=== PATIENT | male | born 1945 | race Caucasian/White ===

== ENCOUNTER 2016-05-10 13:30 | Inpatient (IN) | payer OTHER ==
[~2016-05-10] VITALS: Ht 188 cm; Wt 109.0 kg
[~2016-05-10 13:30] MED LIST: ACIDOPHILUS PROB1 MG PO; ALBUTEROL17 GM IH; ALDACTONE25 MG PO; ALLOPURINOL100 MG PO; ALTACE1.25 MG PO; ALTACE10 MG PO; AMBIEN5 MG PO; ANUCORT-HC25 MG PR; APRESOLINE10 MG PO; ARTIFICIAL TEAR15 M1 BOTH EYES; ATORVASTATIN CA10 MG PO; Aldactone PO; BACTRIM,SEPT1 TABLET PO; BISACODYL10 MG PR; BUMETANIDE0.5 MG PO; BUMETANIDE1 MG PO; BUMETANIDE2 MG PO; BUMEX1 MG PO; BUMEX2 MG PO; CALCITRIOL0.25 MC1 PO; CALCITRIOL0.25 MCG PO; CALCIUM; CALCIUM 600 +1 EAC1 PO; CALCIUM 600 +1 EAC4 PO; CALCIUM ACETAT667 M1 PO; CALCIUM PO; CALCIUM500 M4 PO; COLACE100 MG PO; COMPLETE SENIO1 EACH PO; CONSTULOSE10 GM/15 M PO; CORDARONE200 MG PO; COREG; COREG12.5 M1 PO; COREG25 M1 PO; COREG25 MG PO; COREG6.25 M1 PO; COUMADIN,JANTO2.5 MG PO; COUMADIN,JANTOVE5 MG PO; COUMADIN5 MG PO; Coreg PO; Coumadin,Jantoven PO; DOXYCYCLINE HY100 MG PO; DRISDOL50000 UNIT PO; ERGOCALCIF50000 UNI1 PO; FEOSOL325 MG PO; FERROUS SULFAT325 MG PO; FLONASE16 G1 BOTH NARES; FLUNISOLIDE25 ML BOTH NARES; FOLIC ACID1 MG PO; FUROSEMIDE40 MG PO; GLEEVEC400 MG PO; GLIPIZIDE; GLIPIZIDE10 M1 PO; GLIPIZIDE5 MG PO; GLUCOTROL XL5 MG PO; GLUCOTROL5 MG PO; HEMORRHOID OINT60 G1 PR; HYDROCHLOROTHIA25 MG PO; INR ON; K-DUR10 ME2 PO; K-DUR20 MEQ; K-DUR20 MEQ PO; K-Dur PO; K-TAB10 MEQ PO; KLOR-CON M2020 MEQ PO; KLOR-CON20 MEQ PO; LANOXIN,DIGI0.125 MG PO; LANTUS; LANTUS 10100 UNITS/ SC; LANTUS 3 M100 UNITS/ SC; LANTUS 3 M100 UNITS1 SC; LANTUS100 UNIT/2 SQ; LASIX20 MG PO; LASIX40 MG; LASIX40 MG PO; LEVOFLOXACIN750 MG PO; LEVOTHROID,S0.112 MG PO; LEVOTHROID,S0.125 MG PO; LEVOTHROID,SYN0.2 MG PO; LIPITOR20 MG PO; LISINOPRIL; LISINOPRIL5 MG PO; LOPERAMIDE2 MG PO; LORAZEPAM0.5 MG PO; Lasix PO; Levothroid,Synthroid PO; MACROBID100 MG PO; MAGOX 400400 MG PO; METAMUCIL FIBE3.4 GM PO; METOPROLOL PO; METOPROLOL TART25 MG PO; MULTIVITAMIN1 EAC2 PO; NEPHRO-VITE,1 TABLET PO; NOVOLOG PE100 UNITS/ SC; ONDANSETRON HCL4 M2 PO; ONDANSETRON HCL4 MG PO; OYSTER SHELL 51 EACH PO; OYSTER SHELL C1 EAC7 PO; OYSTER SHELL PO; PANTOPRAZOLE SO40 MG PO; PLAVIX75 MG PO; POTASSIUM CHLO10 MEQ PO; POTASSIUM CHLO20 ME1 PO; POTASSIUM CHLOR8 ME3 PO; PRINIVIL40 MG PO; PROAIR HFA8.5 GM IH; PROBIOTIC1 EAC1 PO; PROTONIX40 MG PO; Protonix PO; ROCALTROL0.25 MCG PO; Rocaltrol PO; SALINE NASAL SP45 ML BOTH NARES; SIMVASTATIN20 MG PO; SPECTRAVITE SE1 EACH PO; SPIRIVA1 INHALATI IH; SPIRONOLACTONE25 MG PO; SYNTHROID112 MCG PO; TASIGNA200 MG PO; TOPROL XL25 MG PO; TRAZODONE HCL50 MG PO; TUMS500 MG PO; TYLENOL EXTRA500 MG PO; TYLENOL PM PO; Tums,OsCal PO; VANCOMYCIN1.25 GM/25 IV; VITAMIN D250000 UNIT PO; WARFARIN SODIUM5 MG; WARFARIN SODIUM5 MG PO; ZESTRIL,PRINIVI10 M1 PO; ZESTRIL,PRINIVI40 M1; ZESTRIL,PRINIVI40 MG PO; ZOCOR20 MG PO; Zocor PO; Zofran PO; [UNRECOGNIZED DRUG - OTHER]; [UNRECOGNIZED DRUG - OTHER] PR; [UNRECOGNIZED DRUG - SUPPLY] MC
[2016-05-10 14:54] LABS: MCHC 32.3 G/DL (30.0-36.0); MCV 89.9 FL (86-99); MEAN PLAT.VOLUME 10.5 uM^3 (9.0-12.4); PLATELET COUNT 207 K/uL (156-360); RBC DIS.WIDTH-CV 21.1 % (11.8-14.6); RBC DIS.WIDTH-SD 66.8 % (39-53); RED BLOOD COUNT 4.34 M/uL (4.00-5.50); WHITE BLOOD COUNT 11.2 K/uL (4.1-10.2)
[2016-05-10 15:05] LABS: CHLORIDE 95 mEq/L (99-109); POTASSIUM 3.3 mEq/L (3.7-5.4); SODIUM 141 mEq/L (136-147)
[2016-05-10 15:07] LABS: GLUCOSE 176 mg/dL (70-99)
[2016-05-10 15:09] LABS: ANION GAP 15 MEQ/L (2-14)
[2016-05-10 15:11] LABS: GFR ESTIMATE (CALCULATED) 17 mL/min/
[2016-05-10 15:12] LABS: UREA NITROGEN (BUN) 60 mg/dL (9-23)
[2016-05-10 16:12] LABS: TROP-I INTERPRETATION NEGATIVE; TROPONIN-I 0.09 ng/mL (0.0-0.30)
[2016-05-10] MEDS ORDERED: ENULOSE10 GM/15 M PO (18:11)
[2016-05-10] MEDS ORDERED: NEPHROCAPS SOFTG1 MG PO (18:13)
[2016-05-10] MEDS ORDERED: NOVOLOG 10100 UNITS/ SC (18:13)
[2016-05-10] MEDS ORDERED: LEVEMIR100 UNIT/2 SC ×2 (18:14)
[2016-05-10] MEDS ORDERED: RAMIPRIL1.25 MG PO (18:15)
[2016-05-10] MEDS ORDERED: FOSRENOL750 MG PO (18:15)
[2016-05-10] MEDS ORDERED: BUMETANIDE2 MG PO (18:15)
[2016-05-10 21:17] LABS: INTER. NORMALIZED RATIO 1.7; PROTHROMBIN TIME 17.6 (9.2-11.2); PTT 32.3 (25-32)
[2016-05-10 22:01] LABS: BASE EXCESS 9.6 mEq/L (-3 to +3); BICARBONATE 31.4 mEq/L (22-26); CARBOXY HGB 2.4 % (0-5); COMMENTS - BLOOD GASES C+; DEVICE NC; METHEMOGLOBIN 1.1 % (0-1.5); O2 FLOW 3 L/MIN; PCO2 32 mm Hg (35-45); PO2 81 mm Hg (80-100); SITE RB
[2016-05-10 22:02] LABS: TOTAL RESP RATE 32 resp/min
[2016-05-10 22:36] LABS: POINT-OF-CARE METER ID UU13113702
[2016-05-10 23:10] VITALS: BP 101/62
[2016-05-10 23:20] VITALS: BP 101/62
[2016-05-10 23:28] LABS: POINT-OF-CARE METER ID UU14149397
[2016-05-11 04:26] VITALS: BP 109/64
[2016-05-11 05:48] LABS: HEMATOCRIT 37.5 % (38.0-50.0); MCH 28.2 PG (29.0-34.0); MCHC 31.5 G/DL (30.0-36.0); MCV 89.5 FL (86-99); MEAN PLAT.VOLUME 10.3 uM^3 (9.0-12.4); PLATELET COUNT 201 K/uL (156-360); RBC DIS.WIDTH-CV 20.7 % (11.8-14.6); RBC DIS.WIDTH-SD 67.5 % (39-53); RED BLOOD COUNT 4.19 M/uL (4.00-5.50); WHITE BLOOD COUNT 8.8 K/uL (4.1-10.2)
[2016-05-11 06:14] LABS: ANION GAP 14 MEQ/L (2-14); CHLORIDE 96 MEQ/L (99-109); GFR ESTIMATE (CALCULATED) 15 mL/min/; POTASSIUM 3.4 MEQ/L (3.7-5.4); SAMPLE HEMOLYSIS CHECK 0; SAMPLE ICTERIC CHECK 0; SAMPLE LIPEMIA CHECK 0; SODIUM 141 MEQ/L (136-147); UREA NITROGEN (BUN) 66 mg/dL (9-23)
[2016-05-11 06:30] LABS: GLUCOSE 108 mg/dL (70-99)
[2016-05-11 06:43] LABS: EOSINOPHIL (%) 1.7 % (0-5); EOSINOPHIL COUNT 0.2 K/uL (0-0.3); IMMATURE GRANULOCYTE (%) 0.2 % (0.0-0.7); LYMPHOCYTE COUNT 1.5 K/uL (1.0-2.8); MONOCYTE (%) 13.5 % (3-12); MONOCYTE COUNT 1.2 K/uL (0-0.8); NEUTROPHIL (%) 67.5 % (45-76)
[2016-05-11 07:37] VITALS: BP 109/59
[2016-05-11 11:39] VITALS: BP 109/65
[2016-05-11 11:52] LABS: POINT-OF-CARE METER ID UU14149397
[2016-05-11 14:18] LABS: POINT-OF-CARE METER ID UU13113681
[2016-05-11 16:26] LABS: INTER. NORMALIZED RATIO 1.7; PROTHROMBIN TIME 17.5 (9.2-11.2)
[2016-05-11 17:04] VITALS: BP 113/66
[2016-05-11 17:10] LABS: POINT-OF-CARE METER ID UU14149397
[2016-05-11 19:19] VITALS: BP 103/60
[2016-05-11 22:03] LABS: POINT-OF-CARE METER ID UU14149397
[2016-05-11 23:29] VITALS: BP 113/69
[2016-05-12 06:08] LABS: HEMATOCRIT 38.6 % (38.0-50.0); MCH 29.1 PG (29.0-34.0); MCHC 31.9 G/DL (30.0-36.0); MCV 91.3 FL (86-99); MEAN PLAT.VOLUME 11.1 uM^3 (9.0-12.4); PLATELET COUNT 216 K/uL (156-360); RBC DIS.WIDTH-CV 20.9 % (11.8-14.6); RBC DIS.WIDTH-SD 70.2 % (39-53); RED BLOOD COUNT 4.23 M/uL (4.00-5.50); WHITE BLOOD COUNT 10.1 K/uL (4.1-10.2)
[2016-05-12 06:20] LABS: EOSINOPHIL (%) 1.2 % (0-5); EOSINOPHIL COUNT 0.1 K/uL (0-0.3); IMMATURE GRANULOCYTE (%) 0.3 % (0.0-0.7); LYMPHOCYTE COUNT 1.3 K/uL (1.0-2.8); MONOCYTE (%) 13.5 % (3-12); MONOCYTE COUNT 1.4 K/uL (0-0.8); NEUTROPHIL (%) 71.6 % (45-76); NEUTROPHIL COUNT 7.2 K/uL (1.8-6.4)
[2016-05-12 06:24] LABS: INTER. NORMALIZED RATIO 1.7; PROTHROMBIN TIME 17.7 (9.2-11.2)
[2016-05-12 06:47] LABS: ANION GAP 13 MEQ/L (2-14); CHLORIDE 99 MEQ/L (99-109); GLUCOSE 152 mg/dL (70-99); POTASSIUM 3.8 MEQ/L (3.7-5.4); SAMPLE HEMOLYSIS CHECK 0; SAMPLE ICTERIC CHECK 0; SAMPLE LIPEMIA CHECK 0; SODIUM 140 MEQ/L (136-147); UREA NITROGEN (BUN) 48 mg/dL (9-23)
[2016-05-12 06:51] LABS: GFR ESTIMATE (CALCULATED) 20 mL/min/; VANCOMYCIN, TROUGH 5.8 MCG/ML (10-20)
[2016-05-12 06:53] LABS: POINT-OF-CARE METER ID UU14149397
[2016-05-12 08:07] VITALS: BP 102/57
[2016-05-12 11:51] VITALS: BP 103/55
[2016-05-12 12:07] LABS: POINT-OF-CARE METER ID UU14149397
[2016-05-12 15:36] VITALS: BP 106/56
[2016-05-12 17:06] LABS: POINT-OF-CARE METER ID UU14149397
[2016-05-12 19:41] VITALS: BP 95/56
[2016-05-12 22:13] LABS: POINT-OF-CARE METER ID UU14149397
[2016-05-12 23:43] VITALS: BP 103/56
[2016-05-13 03:50] VITALS: BP 100/61
[2016-05-13 04:46] LABS: HEMATOCRIT 37.3 % (38.0-50.0); MCH 29.1 PG (29.0-34.0); MCHC 32.2 G/DL (30.0-36.0); MCV 90.3 FL (86-99); MEAN PLAT.VOLUME 10.9 uM^3 (9.0-12.4); PLATELET COUNT 216 K/uL (156-360); RBC DIS.WIDTH-CV 20.4 % (11.8-14.6); RBC DIS.WIDTH-SD 65.7 % (39-53); RED BLOOD COUNT 4.13 M/uL (4.00-5.50); WHITE BLOOD COUNT 9.1 K/uL (4.1-10.2)
[2016-05-13 04:48] LABS: EOSINOPHIL (%) 2.3 % (0-5); EOSINOPHIL COUNT 0.2 K/uL (0-0.3); IMMATURE GRANULOCYTE (%) 0.2 % (0.0-0.7); IMMATURE GRANULOCYTE COUNT 0.2 K/uL; LYMPHOCYTE COUNT 1.5 K/uL (1.0-2.8); MONOCYTE (%) 13.1 % (3-12); MONOCYTE COUNT 1.2 K/uL (0-0.8); NEUTROPHIL (%) 67.5 % (45-76); NEUTROPHIL COUNT 6.1 K/uL (1.8-6.4)
[2016-05-13 04:55] LABS: INTER. NORMALIZED RATIO 1.7; PROTHROMBIN TIME 17.8 (9.2-11.2)
[2016-05-13 05:00] LABS: CHLORIDE 99 mEq/L (99-109); SODIUM 137 mEq/L (136-147)
[2016-05-13 05:03] LABS: ANION GAP 15 MEQ/L (2-14)
[2016-05-13 05:04] LABS: GLUCOSE 238 mg/dL (70-99)
[2016-05-13 05:05] LABS: GFR ESTIMATE (CALCULATED) 14 mL/min/
[2016-05-13 05:09] LABS: UREA NITROGEN (BUN) 76 mg/dL (9-23)
[2016-05-13 06:22] LABS: POINT-OF-CARE METER ID UU14149397
[2016-05-13 11:01] LABS: HBSG INDEX 0.27
[2016-05-13 11:02] LABS: HEPATITIS B SURFACE ANTIBODY Nonreactive
[2016-05-13 12:33] LABS: POINT-OF-CARE METER ID UU14149397
[2016-05-13 16:25] LABS: POINT-OF-CARE METER ID UU14149397
[2016-05-13 17:33] VITALS: BP 98/57
[2016-05-13 19:56] VITALS: BP 103/56
[2016-05-13 22:16] LABS: POINT-OF-CARE METER ID UU14149397
[2016-05-13 23:40] VITALS: BP 96/61
[2016-05-14 03:36] VITALS: BP 96/54
[2016-05-14 06:17] LABS: INTER. NORMALIZED RATIO 1.8; PROTHROMBIN TIME 18.7 (9.2-11.2)
[2016-05-14 08:11] VITALS: BP 101/56
[2016-05-14 12:09] VITALS: BP 101/62
[2016-05-14 16:45] VITALS: BP 138/62
[2016-05-14 19:48] VITALS: BP 97/64
[2016-05-14 23:52] VITALS: BP 112/55
[2016-05-15 04:17] VITALS: BP 109/61
[2016-05-15 08:52] VITALS: BP 113/62
[2016-05-15 12:00] VITALS: BP 117/64
[2016-05-15 16:00] VITALS: BP 98/57
[2016-05-15 19:44] VITALS: BP 97/53
[2016-05-15 23:45] VITALS: BP 102/60
[2016-05-16 04:06] VITALS: BP 95/54
[2016-05-16 07:58] LABS: INTER. NORMALIZED RATIO 2.6; PROTHROMBIN TIME 26.9 (9.2-11.2)
[2016-05-16 08:16] LABS: TOBRAMYCIN (TROUGH) 1.1 MCG/ML (0-1.0)
[2016-05-16 08:25] VITALS: BP 95/58
[2016-05-16 10:12] LABS: HEMATOCRIT 37.8 % (38.0-50.0); MCH 29.3 PG (29.0-34.0); MCHC 33.1 G/DL (30.0-36.0); MCV 88.5 FL (86-99); MEAN PLAT.VOLUME 10.7 uM^3 (9.0-12.4); PLATELET COUNT 247 K/uL (156-360); RBC DIS.WIDTH-CV 20.4 % (11.8-14.6); RBC DIS.WIDTH-SD 64.8 % (39-53); RED BLOOD COUNT 4.27 M/uL (4.00-5.50); WHITE BLOOD COUNT 10.1 K/uL (4.1-10.2)
[2016-05-16 10:18] LABS: ANION GAP 20 MEQ/L (2-14); CHLORIDE 93 MEQ/L (99-109); POTASSIUM 4.8 MEQ/L (3.7-5.4); SAMPLE HEMOLYSIS CHECK 0; SAMPLE ICTERIC CHECK 0; SAMPLE LIPEMIA CHECK 0; SODIUM 134 MEQ/L (136-147)
[2016-05-16 10:19] LABS: GFR ESTIMATE (CALCULATED) 9 mL/min/; GLUCOSE 224 mg/dL (70-99); UREA NITROGEN (BUN) 88 mg/dL (9-23)
[2016-05-16 10:22] LABS: EOSINOPHIL (%) 0.9 % (0-5); EOSINOPHIL COUNT 0.1 K/uL (0-0.3); IMMATURE GRANULOCYTE (%) 0.3 % (0.0-0.7); LYMPHOCYTE COUNT 1.3 K/uL (1.0-2.8); MONOCYTE (%) 11.7 % (3-12); MONOCYTE COUNT 1.2 K/uL (0-0.8); NEUTROPHIL (%) 74.4 % (45-76); NEUTROPHIL COUNT 7.5 K/uL (1.8-6.4)
[2016-05-16 17:09] LABS: BASE EXCESS 0.2 mEq/L (-3 to +3); BICARBONATE 22.6 mEq/L (22-26); CARBOXY HGB 3.7 % (0-5); COMMENTS - BLOOD GASES C+; METHEMOGLOBIN 0.8 % (0-1.5); PCO2 29 mm Hg (35-45); PO2 70 mm Hg (80-100); SITE RB
[2016-05-16 17:10] LABS: DEVICE RA; TOTAL RESP RATE 26 resp/min
[2016-05-16 17:42] VITALS: BP 96/60
[2016-05-16 20:04] VITALS: BP 100/55
[2016-05-16 22:09] LABS: POINT-OF-CARE METER ID UU13113717
[2016-05-16 23:45] VITALS: BP 94/58
[2016-05-17 03:46] VITALS: BP 117/58
[2016-05-17 04:49] LABS: ADD MIUA? YES
[2016-05-17 04:50] LABS: COLOR BLOODY ((YELLOW)); LEUKOCYTES TRACE; NITRITE NEGATIVE
[2016-05-17 04:51] LABS: BILIRUBIN MODERATE; BLOOD LARGE; GLUCOSE (STRIP) NEGATIVE; ICTOTEST POSITIVE; KETONES NEGATIVE; PROTEIN (STRIP) 300; UROBILINOGEN 0.2 MG/DL (0.2-1.0)
[2016-05-17 04:52] LABS: RED BLOOD CELLS TNTC /HPF (0-5)
[2016-05-17 05:09] LABS: CHLORIDE 103 mEq/L (99-109); POTASSIUM 4.4 mEq/L (3.7-5.4); SODIUM 139 mEq/L (136-147)
[2016-05-17 05:11] LABS: GLUCOSE 136 mg/dL (70-99); HEMATOCRIT 37.6 % (38.0-50.0); MCH 28.9 PG (29.0-34.0); MCHC 32.4 G/DL (30.0-36.0); MCV 89.1 FL (86-99); MEAN PLAT.VOLUME 9.9 uM^3 (9.0-12.4); PLATELET COUNT 218 K/uL (156-360); RBC DIS.WIDTH-CV 20.4 % (11.8-14.6); RBC DIS.WIDTH-SD 64.8 % (39-53); RED BLOOD COUNT 4.22 M/uL (4.00-5.50); WHITE BLOOD COUNT 8.9 K/uL (4.1-10.2)
[2016-05-17 05:12] LABS: ANION GAP 14 MEQ/L (2-14); INTER. NORMALIZED RATIO 3.1; PROTHROMBIN TIME 32.4 (9.2-11.2)
[2016-05-17 05:13] LABS: EOSINOPHIL (%) 1.5 % (0-5); EOSINOPHIL COUNT 0.1 K/uL (0-0.3); IMMATURE GRANULOCYTE (%) 0.2 % (0.0-0.7); IMMATURE GRANULOCYTE COUNT 0.2 K/uL; LYMPHOCYTE COUNT 1.4 K/uL (1.0-2.8); MONOCYTE (%) 12.4 % (3-12); MONOCYTE COUNT 1.1 K/uL (0-0.8); NEUTROPHIL (%) 69.6 % (45-76); NEUTROPHIL COUNT 6.2 K/uL (1.8-6.4)
[2016-05-17 05:15] LABS: GFR ESTIMATE (CALCULATED) 11 mL/min/
[2016-05-17 05:16] LABS: UREA NITROGEN (BUN) 67 mg/dL (9-23)
[2016-05-17 06:36] LABS: POINT-OF-CARE METER ID UU13113717
[2016-05-17 08:30] VITALS: BP 108/68
[2016-05-17 11:30] VITALS: BP 108/68
[2016-05-17 16:30] VITALS: BP 105/57
[2016-05-17 20:00] VITALS: BP 103/63
[2016-05-18] VITALS: BP 105/67
[2016-05-18 03:45] VITALS: BP 107/58
[2016-05-18 05:41] LABS: INTER. NORMALIZED RATIO 3.2; PROTHROMBIN TIME 33.9 (9.2-11.2)
[2016-05-18 07:12] LABS: POINT-OF-CARE METER ID UU13113717
[2016-05-18 08:36] LABS: HEMATOCRIT 38.7 % (38.0-50.0); MCH 29.3 PG (29.0-34.0); MCHC 33.1 G/DL (30.0-36.0); MCV 88.6 FL (86-99); MEAN PLAT.VOLUME 10.5 uM^3 (9.0-12.4); PLATELET COUNT 232 K/uL (156-360); RBC DIS.WIDTH-SD 64.5 % (39-53); RED BLOOD COUNT 4.37 M/uL (4.00-5.50); WHITE BLOOD COUNT 10.5 K/uL (4.1-10.2)
[2016-05-18 08:44] LABS: EOSINOPHIL COUNT 0.1 K/uL (0-0.3); IMMATURE GRANULOCYTE (%) 0.3 % (0.0-0.7); LYMPHOCYTE COUNT 0.9 K/uL (1.0-2.8); MONOCYTE (%) 11.8 % (3-12); MONOCYTE COUNT 1.2 K/uL (0-0.8); NEUTROPHIL COUNT 8.2 K/uL (1.8-6.4)
[2016-05-18 08:51] VITALS: BP 110/60
[2016-05-18 08:53] LABS: ANION GAP 16 MEQ/L (2-14); CHLORIDE 99 MEQ/L (99-109); GFR ESTIMATE (CALCULATED) 9 mL/min/; GLUCOSE 201 mg/dL (70-99); POTASSIUM 4.9 MEQ/L (3.7-5.4); SAMPLE HEMOLYSIS CHECK 0; SAMPLE ICTERIC CHECK 0; SAMPLE LIPEMIA CHECK 0; SODIUM 135 MEQ/L (136-147); UREA NITROGEN (BUN) 86 mg/dL (9-23)
[2016-05-18 13:33] VITALS: BP 109/63
[2016-05-18 17:13] LABS: POINT-OF-CARE METER ID UU13113717
[2016-05-18 18:50] VITALS: BP 112/67
[2016-05-18 20:02] VITALS: BP 116/56
[2016-05-18 21:49] LABS: POINT-OF-CARE METER ID UU14149397
[2016-05-19 00:46] VITALS: BP 106/57
[2016-05-19 04:00] VITALS: BP 130/58
[2016-05-19 06:19] LABS: HEMATOCRIT 39.4 % (38.0-50.0); MCH 29.5 PG (29.0-34.0); MCHC 32.2 G/DL (30.0-36.0); MCV 91.6 FL (86-99); MEAN PLAT.VOLUME 10.6 uM^3 (9.0-12.4); PLATELET COUNT 221 K/uL (156-360); RBC DIS.WIDTH-CV 20.6 % (11.8-14.6); RBC DIS.WIDTH-SD 67.9 % (39-53); WHITE BLOOD COUNT 8.7 K/uL (4.1-10.2)
[2016-05-19 06:34] LABS: INTER. NORMALIZED RATIO 2.9; PROTHROMBIN TIME 30.9 (9.2-11.2)
[2016-05-19 06:51] LABS: ANION GAP 13 MEQ/L (2-14); CHLORIDE 100 MEQ/L (99-109); GFR ESTIMATE (CALCULATED) 12 mL/min/; POTASSIUM 4.8 MEQ/L (3.7-5.4); SAMPLE HEMOLYSIS CHECK 0; SAMPLE ICTERIC CHECK 0; SAMPLE LIPEMIA CHECK 0; SODIUM 140 MEQ/L (136-147); UREA NITROGEN (BUN) 55 mg/dL (9-23)
[2016-05-19 06:53] LABS: GLUCOSE 76 mg/dL (70-99)
[2016-05-19 06:55] LABS: POINT-OF-CARE METER ID UU13113717
[2016-05-19 07:53] LABS: EOSINOPHIL (%) 1.3 % (0-5); EOSINOPHIL COUNT 0.1 K/uL (0-0.3); HEMATOLOGY COMMENT 1 SMEAR COMPATIBLE; IMMATURE GRANULOCYTE (%) 0.2 % (0.0-0.7); LYMPHOCYTE COUNT 1.2 K/uL (1.0-2.8); MONOCYTE (%) 18.2 % (3-12); MONOCYTE COUNT 1.6 K/uL (0-0.8); NEUTROPHIL (%) 66.4 % (45-76); NEUTROPHIL COUNT 5.7 K/uL (1.8-6.4); PLAT.SUFFICIENCY ADEQUATE
[2016-05-19 08:14] VITALS: BP 99/58
[2016-05-19 12:01] LABS: POINT-OF-CARE METER ID UU13113717
[2016-05-19 16:07] VITALS: BP 136/72
[2016-05-19 16:33] LABS: POINT-OF-CARE METER ID UU13113717
[2016-05-19 21:00] VITALS: BP 125/78
[2016-05-19 21:50] LABS: POINT-OF-CARE METER ID UU14149397; POINT-OF-CARE USER ID AHSUCEG
[2016-05-19 23:26] VITALS: BP 100/62
[2016-05-20 07:04] LABS: POINT-OF-CARE METER ID UU13113717
[2016-05-20 07:47] LABS: HEMATOCRIT 38.1 % (38.0-50.0); MCH 29.6 PG (29.0-34.0); MCHC 33.1 G/DL (30.0-36.0); MCV 89.6 FL (86-99); MEAN PLAT.VOLUME 10.3 uM^3 (9.0-12.4); PLATELET COUNT 204 K/uL (156-360); RBC DIS.WIDTH-CV 20.3 % (11.8-14.6); RBC DIS.WIDTH-SD 65.7 % (39-53); RED BLOOD COUNT 4.25 M/uL (4.00-5.50); WHITE BLOOD COUNT 9.3 K/uL (4.1-10.2)
[2016-05-20 08:10] LABS: ANION GAP 15 MEQ/L (2-14); CHLORIDE 100 MEQ/L (99-109); GFR ESTIMATE (CALCULATED) 10 mL/min/; GLUCOSE 160 mg/dL (70-99); SAMPLE HEMOLYSIS CHECK 0; SAMPLE ICTERIC CHECK 0; SAMPLE LIPEMIA CHECK 0; SODIUM 137 MEQ/L (136-147); UREA NITROGEN (BUN) 74 mg/dL (9-23)
[2016-05-20 08:16] LABS: PROTHROMBIN TIME 31.7 (9.2-11.2)
[2016-05-20 08:30] VITALS: BP 109/68
[2016-05-20 11:30] VITALS: BP 132/67; BP 92/56
[2016-05-20 12:01] LABS: POINT-OF-CARE METER ID UU13113717
[2016-05-20] MEDS ORDERED: COUMADIN2 MG PO (14:19)
[2016-05-20] MEDS ORDERED: MIDODRINE HCL5 MG PO (14:19)
[2016-05-20 17:03] VITALS: BP 104/66
== END 2016-05-20 18:01 | disposition home health service (06) | DRG 570 ==
LOC: EME 13:30 → 3EAST 19:45 → EDOF 19:45 → 3EAST 22:58
PROVIDERS: Emergency Medicine; Hospitalist; Internal Medicine; Internal Medicine Nephrology
PROC: 5A1D60Z (ICD-10-PCS; 2016-05-10)
PROC: 0HBNXZZ Excision of Left Foot Skin, External Approach (ICD-10-PCS; principal; 2016-05-11)
PROC: 0HDNXZZ Extraction of Left Foot Skin, External Approach (ICD-10-PCS; 2016-05-18)
DX: L03.114 Cellulitis of left upper limb (principal); I13.2 Hypertensive heart and chronic kidney disease with heart failure and with stage 5 chronic kidney disease, or end stage renal disease; N18.6 End stage renal disease; I50.43 Acute on chronic combined systolic (congestive) and diastolic (congestive) heart failure; E11.622 Type 2 diabetes mellitus with other skin ulcer; L97.429 Non-pressure chronic ulcer of left heel and midfoot with unspecified severity; B95.4 Other streptococcus as the cause of diseases classified elsewhere; B96.5 Pseudomonas (aeruginosa) (mallei) (pseudomallei) as the cause of diseases classified elsewhere; T87.81 Dehiscence of amputation stump; T82.867A Thrombosis due to cardiac prosthetic devices, implants and grafts, initial encounter; I82.B22 Chronic embolism and thrombosis of left subclavian vein; I42.9 Cardiomyopathy, unspecified; J90 Pleural effusion, not elsewhere classified; J98.11 Atelectasis; C92.Z1 Other myeloid leukemia, in remission; E87.3 Alkalosis; G47.33 Obstructive sleep apnea (adult) (pediatric); Z99.2 Dependence on renal dialysis; E11.65 Type 2 diabetes mellitus with hyperglycemia; I48.2 Chronic atrial fibrillation; J44.9 Chronic obstructive pulmonary disease, unspecified; R31.0 Gross hematuria; N28.1 Cyst of kidney, acquired; I73.9 Peripheral vascular disease, unspecified; D64.9 Anemia, unspecified; E78.2 Mixed hyperlipidemia; E03.9 Hypothyroidism, unspecified; M10.9 Gout, unspecified; E66.9 Obesity, unspecified; Z89.412 Acquired absence of left great toe; Z86.718 Personal history of other venous thrombosis and embolism; Z79.01 Long term (current) use of anticoagulants; Z87.891 Personal history of nicotine dependence
CPT/HCPCS: 36600; 71010; 71020; 71250; 76882; 80048; 80069; 80200; 80202; 81003; 82565; 82803; 82948; 83605; 84484; 85025; 85027; 85610; 85730; 86706; 87040; 87070; 87075; 87077; 87186; 87205; 87340; 93005; 93970; 94660; 94799; 97530 GP; 99202; 99281; 99285; J1815; J1940; J2765; J3260; J3370; J7050; P9047; S0073

== ENCOUNTER 2016-05-29 10:27 | Day surgery (SDC) | payer OTHER ==
[~2016-05-29] VITALS: Ht 182.9 cm; Wt 108.9 kg
[~2016-05-29 10:27] MED LIST changes: +COUMADIN2 MG PO; +ENULOSE10 GM/15 M PO; +FOSRENOL750 MG PO; +LEVEMIR100 UNIT/2 SC; +MIDODRINE HCL5 MG PO; +NEPHROCAPS SOFTG1 MG PO; +NOVOLOG 10100 UNITS/ SC; +RAMIPRIL1.25 MG PO
[2016-05-29 11:07] LABS: POINT-OF-CARE METER ID UU13113696
[2016-05-29 12:20] LABS: METH RESISTANT S AUREUS PCR NEGATIVE (NEGATIVE)
[2016-05-29 12:22] LABS: PROBE CHECK PASS; SPECIMEN PROCESSING CONTROL PASS
[2016-05-29 12:43] LABS: POINT-OF-CARE METER ID UU13113819
[2016-05-30] MEDS ORDERED: COUMADIN2 MG PO (08:14)
[2016-05-30] MEDS ORDERED: CALCIUM 600 MG1 EACH PO (08:15)
[2016-05-30 09:19] LABS: POINT-OF-CARE METER ID UU13113696
== END 2016-05-29 13:47 | disposition home or self-care (01) ==
LOC: CATH 10:27
PROVIDERS: Surgery
DX: T82.898A Other specified complication of vascular prosthetic devices, implants and grafts, initial encounter (principal); T82.867A Thrombosis due to cardiac prosthetic devices, implants and grafts, initial encounter; I82.B12 Acute embolism and thrombosis of left subclavian vein; Y83.1 Surgical operation with implant of artificial internal device as the cause of abnormal reaction of the patient, or of later complication, without mention of misadventure at the time of the procedure; Y83.2 Surgical operation with anastomosis, bypass or graft as the cause of abnormal reaction of the patient, or of later complication, without mention of misadventure at the time of the procedure; Z95.810 Presence of automatic (implantable) cardiac defibrillator; I48.2 Chronic atrial fibrillation; Z79.01 Long term (current) use of anticoagulants; I12.0 Hypertensive chronic kidney disease with stage 5 chronic kidney disease or end stage renal disease; E11.22 Type 2 diabetes mellitus with diabetic chronic kidney disease; N18.6 End stage renal disease; Z99.2 Dependence on renal dialysis; I42.9 Cardiomyopathy, unspecified; Z88.1 Allergy status to other antibiotic agents; Z88.8 Allergy status to other drugs, medicaments and biological substances
CPT/HCPCS: 82948; 87641; C1769; C1894; J1644; J2250; J3010

== ENCOUNTER 2016-05-30 00:07 | Inpatient (IN) | payer OTHER ==
[~2016-05-30] VITALS: Ht 188 cm; Wt 115.0 kg
[2016-05-30 01:12] LABS: BASE EXCESS 7.3 mEq/L (-3 to +3); BICARBONATE 29.5 mEq/L (22-26); CARBOXY HGB 2.3 % (0-5); COMMENTS - BLOOD GASES C; METHEMOGLOBIN 1.1 % (0-1.5); O2 FLOW 6 L/MIN; PCO2 33 mm Hg (35-45); PO2 49 mm Hg (80-100); SITE RB; pH 7.56 (7.35-7.45)
[2016-05-30 01:13] LABS: DEVICE NC; TOTAL RESP RATE 30 resp/min
[2016-05-30 01:16] LABS: CREATININE 6.3 mg/dL (0.6-1.3); POTASSIUM 4.2 mEq/L (3.7-5.4)
[2016-05-30 01:30] LABS: EOSINOPHIL (%) 0.2 % (0-5); HEMATOCRIT 36.7 % (38.0-50.0); IMMATURE GRANULOCYTE (%) 0.3 % (0.0-0.7); IMMATURE GRANULOCYTE COUNT 0.6 K/uL; LYMPHOCYTE COUNT 0.6 K/uL (1.0-2.8); MCH 29.2 PG (29.0-34.0); MCV 88.4 FL (86-99); MEAN PLAT.VOLUME 11.1 uM^3 (9.0-12.4); MONOCYTE (%) 6.2 % (3-12); MONOCYTE COUNT 1.1 K/uL (0-0.8); NEUTROPHIL (%) 89.9 % (45-76); NEUTROPHIL COUNT 16.2 K/uL (1.8-6.4); PLATELET COUNT 222 K/uL (156-360); RBC DIS.WIDTH-CV 20.1 % (11.8-14.6); RBC DIS.WIDTH-SD 62.3 % (39-53); RED BLOOD COUNT 4.15 M/uL (4.00-5.50)
[2016-05-30 01:36] LABS: CHLORIDE 95 mEq/L (99-109); POTASSIUM 3.9 mEq/L (3.7-5.4); SODIUM 137 mEq/L (136-147)
[2016-05-30 01:39] LABS: GLUCOSE 202 mg/dL (70-99)
[2016-05-30 01:40] LABS: ANION GAP 20 MEQ/L (2-14)
[2016-05-30 01:41] LABS: TOTAL BILIRUBIN 2.3 mg/dL (0.0-1.0)
[2016-05-30 01:42] LABS: ALKALINE PHOSPHATASE 235 IU/L (3-129); GFR ESTIMATE (CALCULATED) 9 mL/min/
[2016-05-30 01:43] LABS: UREA NITROGEN (BUN) 83 mg/dL (9-23)
[2016-05-30 01:46] LABS: LIPASE 67 U/L (1.0-51.0); TROP-I INTERPRETATION NEGATIVE; TROPONIN-I 0.11 ng/mL (0.0-0.30)
[2016-05-30 04:19] LABS: POINT-OF-CARE METER ID UU14100415
[2016-05-30 07:06] LABS: HEMATOCRIT 35.2 % (38.0-50.0); MCH 28.5 PG (29.0-34.0); MCHC 32.1 G/DL (30.0-36.0); MCV 88.9 FL (86-99); MEAN PLAT.VOLUME 10.6 uM^3 (9.0-12.4); PLATELET COUNT 219 K/uL (156-360); RBC DIS.WIDTH-CV 20.3 % (11.8-14.6); RBC DIS.WIDTH-SD 64.7 % (39-53); RED BLOOD COUNT 3.96 M/uL (4.00-5.50)
[2016-05-30 07:09] LABS: WHITE BLOOD COUNT 24.2 K/uL (4.1-10.2)
[2016-05-30 07:20] LABS: POINT-OF-CARE METER ID UU13113702; POINT-OF-CARE USER ID STWBNM43
[2016-05-30 07:26] LABS: ALKALINE PHOSPHATASE 216 IU/L (3-129); ANION GAP 17 MEQ/L (2-14); CHLORIDE 93 MEQ/L (99-109); GFR ESTIMATE (CALCULATED) 9 mL/min/; GLUCOSE 203 mg/dL (70-99); SAMPLE HEMOLYSIS CHECK 0; SAMPLE ICTERIC CHECK 0; SAMPLE LIPEMIA CHECK 0; SODIUM 135 MEQ/L (136-147); TOTAL BILIRUBIN 2.6 MG/DL (0.0-1.0); UREA NITROGEN (BUN) 81 mg/dL (9-23)
[2016-05-30 07:42] LABS: INTER. NORMALIZED RATIO 1.6; PROTHROMBIN TIME 16.7 (9.2-11.2)
[2016-05-30] MEDS ORDERED: COUMADIN2 MG PO (08:14)
[2016-05-30] MEDS ORDERED: CALCIUM 600 MG1 EACH PO (08:15)
[2016-05-30 16:49] LABS: POINT-OF-CARE METER ID UU13113702
[2016-05-30 20:52] VITALS: BP 93/54
[2016-05-30 21:19] LABS: POINT-OF-CARE METER ID UU14174216
[2016-05-31] VITALS (8 sets, daily range): BP systolic 85–125; BP diastolic 45–64
[2016-05-31 07:06] LABS: INTER. NORMALIZED RATIO 1.7; PROTHROMBIN TIME 17.4 (9.2-11.2)
[2016-05-31 21:19] LABS: POINT-OF-CARE METER ID UU13113781
[2016-06-01 03:18] VITALS: BP 101/59
[2016-06-01 03:20] LABS: POINT-OF-CARE METER ID UU13113781
[2016-06-01 07:00] VITALS: BP 113/57
[2016-06-01 08:29] LABS: HEMATOCRIT 34.9 % (38.0-50.0); MCH 28.9 PG (29.0-34.0); MCHC 32.4 G/DL (30.0-36.0); MCV 89.3 FL (86-99); MEAN PLAT.VOLUME 11.3 uM^3 (9.0-12.4); PLATELET COUNT 229 K/uL (156-360); RBC DIS.WIDTH-CV 20.4 % (11.8-14.6); RBC DIS.WIDTH-SD 65.7 % (39-53); RED BLOOD COUNT 3.91 M/uL (4.00-5.50)
[2016-06-01 08:31] LABS: WHITE BLOOD COUNT 12.7 K/uL (4.1-10.2)
[2016-06-01 08:40] LABS: ANION GAP 15 MEQ/L (2-14); CHLORIDE 94 MEQ/L (99-109); POTASSIUM 4.6 MEQ/L (3.7-5.4); SAMPLE HEMOLYSIS CHECK 0; SAMPLE ICTERIC CHECK 0; SAMPLE LIPEMIA CHECK 0; SODIUM 133 MEQ/L (136-147)
[2016-06-01 08:46] LABS: GFR ESTIMATE (CALCULATED) 9 mL/min/; UREA NITROGEN (BUN) 78 mg/dL (9-23)
[2016-06-01 08:47] LABS: GLUCOSE 355 mg/dL (70-99); INTER. NORMALIZED RATIO 1.7; PROTHROMBIN TIME 17.1 (9.2-11.2)
[2016-06-01 10:37] LABS: POINT-OF-CARE METER ID UU13113681; POINT-OF-CARE USER ID DROKMM72
[2016-06-01 12:30] VITALS: BP 98/53
[2016-06-01 13:26] LABS: POINT-OF-CARE METER ID UU14174216; POINT-OF-CARE USER ID ENVKC36
[2016-06-01 16:18] LABS: TYPE OF FLUID PLEURAL
[2016-06-01 16:41] VITALS: BP 95/55
[2016-06-01 16:51] LABS: POINT-OF-CARE METER ID UU14174216
[2016-06-01 17:06] LABS: BODY FLUID RBC'S 28000 /MM^3 (0-100); BODY FLUID WBC'S 526 /MM^3 (0-500)
[2016-06-01 17:23] LABS: BODY FLUID LDH 115 IU/L; BODY FLUID PROTEIN < 3.0 G/DL
[2016-06-01 17:25] LABS: BODY FLUID EOSINOPHILS 0 % (0-25); MONO RAW COUNT 28; MONONUCLEAR WBC'S 28 %; POLY RAW COUNT 72; POLYNUCLEAR WBC'S 72 % (0-25)
[2016-06-01 19:33] VITALS: BP 87/51
[2016-06-01 21:39] LABS: POINT-OF-CARE METER ID UU13113781
[2016-06-02] VITALS (7 sets, daily range): BP systolic 86–113; BP diastolic 51–70
[2016-06-02 04:29] LABS: POINT-OF-CARE METER ID UU14174216
[2016-06-02 07:46] LABS: POINT-OF-CARE METER ID UU14174216
[2016-06-02 09:54] LABS: HEMATOCRIT 36.8 % (38.0-50.0); MCH 29.6 PG (29.0-34.0); MCHC 32.3 G/DL (30.0-36.0); MCV 91.5 FL (86-99); MEAN PLAT.VOLUME 11.1 uM^3 (9.0-12.4); PLATELET COUNT 233 K/uL (156-360); RBC DIS.WIDTH-CV 20.8 % (11.8-14.6); RBC DIS.WIDTH-SD 67.5 % (39-53); RED BLOOD COUNT 4.02 M/uL (4.00-5.50); WHITE BLOOD COUNT 10.5 K/uL (4.1-10.2)
[2016-06-02 10:06] LABS: INTER. NORMALIZED RATIO 1.6; PROTHROMBIN TIME 16.1 (9.2-11.2)
[2016-06-02 10:18] LABS: ANION GAP 15 MEQ/L (2-14); CHLORIDE 98 MEQ/L (99-109); GLUCOSE 284 mg/dL (70-99); POTASSIUM 4.3 MEQ/L (3.7-5.4); SAMPLE HEMOLYSIS CHECK 0; SAMPLE ICTERIC CHECK 0; SAMPLE LIPEMIA CHECK 0; UREA NITROGEN (BUN) 51 mg/dL (9-23)
[2016-06-02 10:19] LABS: GFR ESTIMATE (CALCULATED) 12 mL/min/; SODIUM 140 MEQ/L (136-147)
[2016-06-02 11:30] LABS: POINT-OF-CARE METER ID UU14174216
[2016-06-02 16:09] LABS: POINT-OF-CARE METER ID UU14174216
[2016-06-03 04:32] VITALS: BP 87/53
[2016-06-03 07:39] LABS: HEMATOCRIT 35.5 % (38.0-50.0); MCH 29.3 PG (29.0-34.0); MCHC 32.4 G/DL (30.0-36.0); MCV 90.6 FL (86-99); MEAN PLAT.VOLUME 10.9 uM^3 (9.0-12.4); PLATELET COUNT 221 K/uL (156-360); RBC DIS.WIDTH-CV 20.6 % (11.8-14.6); RBC DIS.WIDTH-SD 66.3 % (39-53); RED BLOOD COUNT 3.92 M/uL (4.00-5.50); WHITE BLOOD COUNT 8.9 K/uL (4.1-10.2)
[2016-06-03 07:42] LABS: INTER. NORMALIZED RATIO 1.7; PROTHROMBIN TIME 17.4 (9.2-11.2)
[2016-06-03 07:46] LABS: ANION GAP 14 MEQ/L (2-14); CHLORIDE 98 MEQ/L (99-109); GFR ESTIMATE (CALCULATED) 10 mL/min/; GLUCOSE 269 mg/dL (70-99); SAMPLE HEMOLYSIS CHECK 0; SAMPLE ICTERIC CHECK 0; SAMPLE LIPEMIA CHECK 0; SODIUM 139 MEQ/L (136-147); UREA NITROGEN (BUN) 67 mg/dL (9-23)
[2016-06-03 12:11] VITALS: BP 100/56
[2016-06-03] MEDS ORDERED: CARVEDILOL3.125 MG PO (14:45)
== END 2016-06-03 17:04 | disposition home or self-care (01) | DRG 682 ==
LOC: EME → EDBD 00:07 → 4EAST 04:34 → EDOF 04:34 → 4EAST 20:49
PROVIDERS: Emergency Medicine; Hospitalist; Internal Medicine; Internal Medicine Nephrology; Internal Medicine Pulmonary Disease
PROC: 5A1D60Z (ICD-10-PCS; principal; 2016-05-30)
PROC: 5A09457 Assistance with Respiratory Ventilation, 24-96 Consecutive Hours, Continuous Positive Airway Pressure (ICD-10-PCS; 2016-05-30)
PROC: 0W993ZZ Drainage of Right Pleural Cavity, Percutaneous Approach (ICD-10-PCS; 2016-06-01)
DX: N18.6 End stage renal disease (principal); J96.01 Acute respiratory failure with hypoxia; J90 Pleural effusion, not elsewhere classified; I42.9 Cardiomyopathy, unspecified; C92.10 Chronic myeloid leukemia, BCR/ABL-positive, not having achieved remission; Q61.3 Polycystic kidney, unspecified; I50.22 Chronic systolic (congestive) heart failure; L97.529 Non-pressure chronic ulcer of other part of left foot with unspecified severity; I12.0 Hypertensive chronic kidney disease with stage 5 chronic kidney disease or end stage renal disease; I48.2 Chronic atrial fibrillation; E11.22 Type 2 diabetes mellitus with diabetic chronic kidney disease; E11.621 Type 2 diabetes mellitus with foot ulcer; E78.5 Hyperlipidemia, unspecified; J44.9 Chronic obstructive pulmonary disease, unspecified; G47.33 Obstructive sleep apnea (adult) (pediatric); E03.9 Hypothyroidism, unspecified; D63.1 Anemia in chronic kidney disease; M10.9 Gout, unspecified; E87.70 Fluid overload, unspecified; E66.01 Morbid (severe) obesity due to excess calories; Z95.810 Presence of automatic (implantable) cardiac defibrillator; Z79.01 Long term (current) use of anticoagulants; Z99.2 Dependence on renal dialysis; Z89.432 Acquired absence of left foot; Z87.891 Personal history of nicotine dependence; Z87.01 Personal history of pneumonia (recurrent)
CPT/HCPCS: 36600; 71010; 71020; 80047; 80048; 80053; 80069; 80202; 82803; 82945; 82948; 83605; 83615 91; 83690; 83880; 84157; 84484; 85025; 85027; 85610; 87040; 87070; 87075; 87205; 88108; 89051; 93005; 93306; 94002; 94640; 94640 76; 94660; 94760; 94799; 99202; 99281; 99285; J0456; J1815; J2405; J3370; J7050; S0073

== ENCOUNTER 2016-06-05 16:24 | Emergency (ER) | payer OTHER ==
[~2016-06-05] VITALS: Ht 188 cm; Wt 112.4 kg
[~2016-06-05 16:24] MED LIST changes: +CALCIUM 600 MG1 EACH PO; +CARVEDILOL3.125 MG PO
[2016-06-05 18:24] LABS: INTER. NORMALIZED RATIO 1.8; PROTHROMBIN TIME 18.8 (9.2-11.2)
[2016-06-05 18:27] LABS: CHLORIDE 101 mEq/L (99-109); POTASSIUM 4.5 mEq/L (3.7-5.4); SODIUM 139 mEq/L (136-147)
[2016-06-05 18:29] LABS: GLUCOSE 281 mg/dL (70-99)
[2016-06-05 18:30] LABS: ANION GAP 14 MEQ/L (2-14)
[2016-06-05 18:31] LABS: TROP-I INTERPRETATION NEGATIVE; TROPONIN-I 0.08 ng/mL (0.0-0.30)
[2016-06-05 18:32] LABS: ALKALINE PHOSPHATASE 278 IU/L (3-129); GFR ESTIMATE (CALCULATED) 9 mL/min/
[2016-06-05 18:34] LABS: UREA NITROGEN (BUN) 80 mg/dL (9-23)
[2016-06-05 18:35] LABS: HEMATOCRIT 36.2 % (38.0-50.0); MCH 29.6 PG (29.0-34.0); MCHC 32.9 G/DL (30.0-36.0); MEAN PLAT.VOLUME 11.3 uM^3 (9.0-12.4); PLATELET COUNT 233 K/uL (156-360); RBC DIS.WIDTH-CV 20.6 % (11.8-14.6); RBC DIS.WIDTH-SD 66.8 % (39-53); RED BLOOD COUNT 4.02 M/uL (4.00-5.50); WHITE BLOOD COUNT 11.4 K/uL (4.1-10.2)
[2016-06-05 18:36] LABS: TOTAL BILIRUBIN 1.6 mg/dL (0.0-1.0)
[2016-06-05] MEDS ORDERED: VENTOLIN HFA18 GM IH (21:53)
[2016-06-05 22:30] VITALS: BP 103/59
== END 2016-06-05 22:31 | disposition home or self-care (01) ==
LOC: EME 16:24
PROVIDERS: Emergency Medicine
DX: I50.9 Heart failure, unspecified (principal); N19 Unspecified kidney failure; E11.9 Type 2 diabetes mellitus without complications; E78.5 Hyperlipidemia, unspecified; Z95.0 Presence of cardiac pacemaker; Z85.850 Personal history of malignant neoplasm of thyroid; Z88.1 Allergy status to other antibiotic agents; Z87.891 Personal history of nicotine dependence
CPT/HCPCS: 71020; 80053; 84484; 85027; 85610; 85730; 93005; 94640; 99281; 99285

== ENCOUNTER 2016-06-26 10:03 | Observation (INO) | payer OTHER ==
[2016-06-26] VITALS (11 sets, daily range): BP systolic 87–111; BP diastolic 52–73
[~2016-06-26] VITALS: Ht 188 cm; Wt 110.4 kg
[~2016-06-26 10:03] MED LIST changes: +VENTOLIN HFA18 GM IH
[2016-06-26 10:56] LABS: HEMATOCRIT 33.6 % (38.0-50.0); MCH 30.1 PG (29.0-34.0); MCHC 32.7 G/DL (30.0-36.0); MCV 92.1 FL (86-99); RBC DIS.WIDTH-CV 21.5 % (11.8-14.6); RBC DIS.WIDTH-SD 69.3 % (39-53); RED BLOOD COUNT 3.65 M/uL (4.00-5.50)
[2016-06-26 11:00] LABS: WHITE BLOOD COUNT 7.8 K/uL (4.1-10.2)
[2016-06-26 11:02] LABS: CHLORIDE 94 mEq/L (99-109); POTASSIUM 4.3 mEq/L (3.7-5.4); SODIUM 139 mEq/L (136-147)
[2016-06-26 11:04] LABS: GLUCOSE 181 mg/dL (70-99)
[2016-06-26 11:05] LABS: ANION GAP 12 MEQ/L (2-14)
[2016-06-26 11:06] LABS: TOTAL BILIRUBIN 1.7 mg/dL (0.0-1.0)
[2016-06-26 11:07] LABS: ALKALINE PHOSPHATASE 228 IU/L (3-129)
[2016-06-26 11:08] LABS: GFR ESTIMATE (CALCULATED) 11 mL/min/
[2016-06-26 11:09] LABS: UREA NITROGEN (BUN) 64 mg/dL (9-23)
[2016-06-26 11:15] LABS: TROP-I INTERPRETATION NEGATIVE; TROPONIN-I 0.11 ng/mL (0.0-0.30)
[2016-06-26 11:59] LABS: PLATELET COUNT 129 K/uL (156-360)
[2016-06-26 12:49] LABS: POINT-OF-CARE METER ID UU13113702
[2016-06-26] MEDS ORDERED: ACIDOPHILUS LA1 EAC1 PO (13:44)
[2016-06-26] MEDS ORDERED: COUMADIN5 MG PO (13:47)
[2016-06-26] MEDS ORDERED: FLONASE16 G1 BOTH NARES (13:49)
[2016-06-26 14:36] LABS: INTER. NORMALIZED RATIO 1.4; PROTHROMBIN TIME 14.1 (9.2-11.2)
[2016-06-26] MEDS ORDERED: MIDODRINE HCL2.5 MG PO (15:21)
[2016-06-26 17:47] LABS: POINT-OF-CARE METER ID UU14162513
[2016-06-26 19:54] LABS: TROP-I INTERPRETATION NEGATIVE; TROPONIN-I 0.12 ng/mL (0.0-0.30)
[2016-06-27 03:20] LABS: INTER. NORMALIZED RATIO 1.5; PROTHROMBIN TIME 15.5 (9.2-11.2)
[2016-06-27 03:25] LABS: CHLORIDE 95 mEq/L (99-109); POTASSIUM 4.6 mEq/L (3.7-5.4); SODIUM 139 mEq/L (136-147)
[2016-06-27 03:26] LABS: GLUCOSE 151 mg/dL (70-99)
[2016-06-27 03:28] LABS: ANION GAP 11 MEQ/L (2-14)
[2016-06-27 03:30] LABS: GFR ESTIMATE (CALCULATED) 9 mL/min/
[2016-06-27 03:31] LABS: UREA NITROGEN (BUN) 73 mg/dL (9-23)
[2016-06-27 03:33] LABS: TROP-I INTERPRETATION NEGATIVE; TROPONIN-I 0.11 ng/mL (0.0-0.30)
[2016-06-27 04:34] VITALS: BP 97/60
[2016-06-27 07:34] VITALS: BP 99/58
[2016-06-27 08:39] LABS: HEMATOCRIT 33.2 % (38.0-50.0); MCH 29.3 PG (29.0-34.0); MCHC 32.5 G/DL (30.0-36.0); MCV 90.2 FL (86-99); MEAN PLAT.VOLUME 10.3 uM^3 (9.0-12.4); PLATELET COUNT 140 K/uL (156-360); RBC DIS.WIDTH-CV 21.2 % (11.8-14.6); RBC DIS.WIDTH-SD 69.3 % (39-53); RED BLOOD COUNT 3.68 M/uL (4.00-5.50); WHITE BLOOD COUNT 8.6 K/uL (4.1-10.2)
[2016-06-27 08:52] LABS: EOSINOPHIL (%) 2.7 % (0-5); EOSINOPHIL COUNT 0.2 K/uL (0-0.3); IMMATURE GRANULOCYTE (%) 0.1 % (0.0-0.7); MONOCYTE (%) 10.9 % (3-12); MONOCYTE COUNT 0.9 K/uL (0-0.8); NEUTROPHIL (%) 74.3 % (45-76); NEUTROPHIL COUNT 6.4 K/uL (1.8-6.4)
[2016-06-27 08:55] LABS: ANION GAP 11 MEQ/L (2-14); CHLORIDE 94 MEQ/L (99-109); GFR ESTIMATE (CALCULATED) 10 mL/min/; GLUCOSE 135 mg/dL (70-99); POTASSIUM 4.3 MEQ/L (3.7-5.4); SAMPLE HEMOLYSIS CHECK 0; SAMPLE ICTERIC CHECK 0; SAMPLE LIPEMIA CHECK 0; SODIUM 136 MEQ/L (136-147); UREA NITROGEN (BUN) 75 mg/dL (9-23)
[2016-06-27 11:56] VITALS: BP 100/57
[2016-06-27 12:36] LABS: POINT-OF-CARE METER ID UU14162513
[2016-06-27 13:06] LABS: POINT-OF-CARE METER ID UU13113831
[2016-06-27] MEDS ORDERED: MIDODRINE HCL5 MG PO ×2 (13:42→14:24)
== END 2016-06-27 15:21 | disposition home health service (06) ==
LOC: EME 10:03 → 5WEST 13:17 → EDOF 13:17 → 5WEST 15:11
PROVIDERS: Emergency Medicine; Hospitalist; Internal Medicine; Internal Medicine Nephrology
PROC: 5A1D60Z (ICD-10-PCS; 2016-06-26)
PROC: 0HDMXZZ Extraction of Right Foot Skin, External Approach (ICD-10-PCS; principal; 2016-06-27)
DX: E87.70 Fluid overload, unspecified (principal); I95.9 Hypotension, unspecified; T87.89 Other complications of amputation stump; L97.529 Non-pressure chronic ulcer of other part of left foot with unspecified severity; Z79.4 Long term (current) use of insulin; E11.9 Type 2 diabetes mellitus without complications; I12.0 Hypertensive chronic kidney disease with stage 5 chronic kidney disease or end stage renal disease; N18.6 End stage renal disease; Z99.2 Dependence on renal dialysis; D69.6 Thrombocytopenia, unspecified; E78.5 Hyperlipidemia, unspecified; I42.9 Cardiomyopathy, unspecified; I48.91 Unspecified atrial fibrillation; G47.33 Obstructive sleep apnea (adult) (pediatric); J44.9 Chronic obstructive pulmonary disease, unspecified; Z95.810 Presence of automatic (implantable) cardiac defibrillator; Z99.81 Dependence on supplemental oxygen; Z87.891 Personal history of nicotine dependence; S91.302A Unspecified open wound, left foot, initial encounter; S91.301A Unspecified open wound, right foot, initial encounter; X58.XXXA Exposure to other specified factors, initial encounter
CPT/HCPCS: 71020; 80048; 80053; 80069; 82948; 84484; 85025; 85027; 85610; 93005; 94640; 94799; 99281; 99285; G0257; G0378; J1644; J1815

== ENCOUNTER 2016-09-24 13:52 | Inpatient (IN) | payer OTHER ==
[~2016-09-24] VITALS: Ht 188 cm; Wt 107.1 kg
[~2016-09-24 13:52] MED LIST changes: +ACIDOPHILUS LA1 EAC1 PO; +MIDODRINE HCL2.5 MG PO
[2016-09-24 15:14] LABS: EOSINOPHIL (%) 2.6 % (0-5); EOSINOPHIL COUNT 0.2 K/uL (0-0.3); HEMATOCRIT 31.6 % (38.0-50.0); IMMATURE GRANULOCYTE (%) 0.5 % (0.0-0.7); INSTRUMENT ABS NEUTROPHIL CT 5.3 K/uL; MCH 31.7 PG (29.0-34.0); MCV 102.3 FL (86-99); MEAN PLAT.VOLUME 9.4 uM^3 (9.0-12.4); MONOCYTE (%) 15.1 % (3-12); MONOCYTE COUNT 1.2 K/uL (0-0.8); NEUTROPHIL (%) 68.3 % (45-76); NEUTROPHIL COUNT 5.3 K/uL (1.8-6.4); PLATELET COUNT 145 K/uL (156-360); RBC DIS.WIDTH-CV 16.9 % (11.8-14.6); RBC DIS.WIDTH-SD 63.3 % (39-53); RED BLOOD COUNT 3.09 M/uL (4.00-5.50); WHITE BLOOD COUNT 7.8 K/uL (4.1-10.2)
[2016-09-24 15:24] LABS: CHLORIDE 98 mEq/L (99-109); POTASSIUM 3.7 mEq/L (3.7-5.4); SODIUM 141 mEq/L (136-147)
[2016-09-24 15:25] LABS: GLUCOSE 96 mg/dL (70-99)
[2016-09-24 15:27] LABS: ANION GAP 15 MEQ/L (2-14)
[2016-09-24 15:29] LABS: GFR ESTIMATE (CALCULATED) 10 mL/min/
[2016-09-24 15:30] LABS: UREA NITROGEN (BUN) 62 mg/dL (9-23)
[2016-09-24 16:13] LABS: ADD MIUA? YES; BILIRUBIN NEGATIVE; BLOOD LARGE; COLOR AMBER ((YELLOW)); GLUCOSE (STRIP) NEGATIVE; KETONES 5; LEUKOCYTES MODERATE; NITRITE NEGATIVE; PROTEIN (STRIP) 100; SPECIFIC GRAVITY 1.021 (1.000-1.030); UROBILINOGEN 0.2 MG/DL (0.2-1.0)
[2016-09-24 16:31] LABS: BACTERIA 1+ /HPF; EPITHELIAL CELLS 1+ /HPF; MUCUS NONE SEEN /LPF; RED BLOOD CELLS TNTC /HPF (0-5); UCUL ADDED? YES; WHITE BLOOD CELLS TNTC /HPF (0-5); WHITE BLOOD CELLS CLUMP MANY /HPF (0-5)
[2016-09-24] MEDS ORDERED: WARFARIN SODIUM5 MG PO (17:35)
[2016-09-24] MEDS ORDERED: TRAZODONE HCL50 MG PO (17:38)
[2016-09-24 18:20] VITALS: BP 91/50
[2016-09-24 19:19] VITALS: BP 86/53
[2016-09-24 20:58] LABS: INTER. NORMALIZED RATIO 1.9; PROTHROMBIN TIME 19.4 (9.2-11.2)
[2016-09-24 21:04] LABS: POINT-OF-CARE METER ID UU13113725
[2016-09-24 22:37] VITALS: BP 87/53
[2016-09-25 03:43] VITALS: BP 87/52
[2016-09-25 05:46] LABS: POINT-OF-CARE METER ID UU13113725
[2016-09-25 06:28] LABS: EOSINOPHIL (%) 3.4 % (0-5); EOSINOPHIL COUNT 0.3 K/uL (0-0.3); HEMATOCRIT 29.3 % (38.0-50.0); IMMATURE GRANULOCYTE (%) 0.3 % (0.0-0.7); LYMPHOCYTE COUNT 1.3 K/uL (1.0-2.8); MCH 31.7 PG (29.0-34.0); MCHC 31.1 G/DL (30.0-36.0); MCV 102.1 FL (86-99); MEAN PLAT.VOLUME 10.4 uM^3 (9.0-12.4); MONOCYTE (%) 13.7 % (3-12); MONOCYTE COUNT 1.2 K/uL (0-0.8); PLATELET COUNT 159 K/uL (156-360); RBC DIS.WIDTH-CV 16.6 % (11.8-14.6); RED BLOOD COUNT 2.87 M/uL (4.00-5.50); WHITE BLOOD COUNT 8.9 K/uL (4.1-10.2)
[2016-09-25 06:36] LABS: ANION GAP 15 MEQ/L (2-14); CHLORIDE 96 MEQ/L (99-109); POTASSIUM 4.2 MEQ/L (3.7-5.4); SAMPLE HEMOLYSIS CHECK 0; SAMPLE ICTERIC CHECK 0; SAMPLE LIPEMIA CHECK 0; SODIUM 136 MEQ/L (136-147)
[2016-09-25 06:41] LABS: GFR ESTIMATE (CALCULATED) 8 mL/min/; UREA NITROGEN (BUN) 87 mg/dL (9-23)
[2016-09-25 06:51] LABS: GLUCOSE 195 mg/dL (70-99)
[2016-09-25 07:07] VITALS: BP 90/53
[2016-09-25 09:16] LABS: INTER. NORMALIZED RATIO 1.9; PROTHROMBIN TIME 19.4 (9.2-11.2)
[2016-09-25 11:08] VITALS: BP 89/53
[2016-09-25 11:31] LABS: POINT-OF-CARE METER ID UU13113725
[2016-09-25 14:50] VITALS: BP 94/58
[2016-09-25 19:04] VITALS: BP 91/55
[2016-09-25 22:47] VITALS: BP 90/53
[2016-09-26 03:56] VITALS: BP 87/50
[2016-09-26 06:54] VITALS: BP 84/50
[2016-09-26 07:27] LABS: HEMATOCRIT 29.5 % (38.0-50.0); MCH 32.3 PG (29.0-34.0); MCHC 32.2 G/DL (30.0-36.0); MCV 100.3 FL (86-99); MEAN PLAT.VOLUME 10.1 uM^3 (9.0-12.4); PLATELET COUNT 163 K/uL (156-360); RBC DIS.WIDTH-CV 16.3 % (11.8-14.6); RBC DIS.WIDTH-SD 59.6 % (39-53); RED BLOOD COUNT 2.94 M/uL (4.00-5.50); WHITE BLOOD COUNT 7.9 K/uL (4.1-10.2)
[2016-09-26 07:38] LABS: INTER. NORMALIZED RATIO 2.2; PROTHROMBIN TIME 23.2 (9.2-11.2)
[2016-09-26 07:43] LABS: ANION GAP 17 MEQ/L (2-14); CHLORIDE 92 MEQ/L (99-109); POTASSIUM 4.4 MEQ/L (3.7-5.4); SAMPLE HEMOLYSIS CHECK 0; SAMPLE ICTERIC CHECK 0; SAMPLE LIPEMIA CHECK 0; SODIUM 135 MEQ/L (136-147)
[2016-09-26 07:58] LABS: GFR ESTIMATE (CALCULATED) 6 mL/min/; GLUCOSE 194 mg/dL (70-99)
[2016-09-26 08:01] LABS: UREA NITROGEN (BUN) 113 mg/dL (9-23)
[2016-09-26 11:51] LABS: AHBS INDEX 0.29; HBSG INDEX 0.22; HEPATITIS B SURFACE ANTIBODY Nonreactive
[2016-09-26 13:13] LABS: POINT-OF-CARE METER ID UU13113725
[2016-09-26 15:22] VITALS: BP 82/80
[2016-09-26 18:56] VITALS: BP 86/50
[2016-09-26 23:34] VITALS: BP 80/51
[2016-09-27 03:48] VITALS: BP 88/54
[2016-09-27 06:14] LABS: POINT-OF-CARE METER ID UU13113725
[2016-09-27 06:15] LABS: EOSINOPHIL (%) 4.3 % (0-5); EOSINOPHIL COUNT 0.3 K/uL (0-0.3); HEMATOCRIT 30.7 % (38.0-50.0); IMMATURE GRANULOCYTE (%) 0.7 % (0.0-0.7); IMMATURE GRANULOCYTE COUNT 0.1 K/uL; INSTRUMENT ABS NEUTROPHIL CT 4.8 K/uL; MCH 32.1 PG (29.0-34.0); MCHC 31.6 G/DL (30.0-36.0); MCV 101.7 FL (86-99); MEAN PLAT.VOLUME 9.8 uM^3 (9.0-12.4); MONOCYTE (%) 12.8 % (3-12); MONOCYTE COUNT 0.9 K/uL (0-0.8); NEUTROPHIL (%) 68.2 % (45-76); NEUTROPHIL COUNT 4.8 K/uL (1.8-6.4); PLATELET COUNT 169 K/uL (156-360); RBC DIS.WIDTH-CV 16.2 % (11.8-14.6); RBC DIS.WIDTH-SD 60.7 % (39-53); RED BLOOD COUNT 3.02 M/uL (4.00-5.50)
[2016-09-27 06:33] LABS: INTER. NORMALIZED RATIO 2.4; PROTHROMBIN TIME 24.9 (9.2-11.2)
[2016-09-27 07:19] LABS: ALKALINE PHOSPHATASE 162 IU/L (3-129); ANION GAP 14 MEQ/L (2-14); CHLORIDE 97 MEQ/L (99-109); GFR ESTIMATE (CALCULATED) 10 mL/min/; GLUCOSE 182 mg/dL (70-99); POTASSIUM 4.5 MEQ/L (3.7-5.4); SAMPLE HEMOLYSIS CHECK 0; SAMPLE ICTERIC CHECK 0; SAMPLE LIPEMIA CHECK 0; SODIUM 138 MEQ/L (136-147); TOTAL BILIRUBIN 0.6 MG/DL (0.0-1.0); UREA NITROGEN (BUN) 69 mg/dL (9-23)
[2016-09-27 08:22] VITALS: BP 90/64
[2016-09-27] MEDS ORDERED: TRAZODONE HCL100 MG PO (08:34)
[2016-09-27] MEDS ORDERED: GENTAMICIN40 MG/1 ML IV (08:34)
[2016-09-27 11:16] VITALS: BP 120/78
== END 2016-09-27 13:32 | disposition home or self-care (01) | DRG 689 ==
LOC: EME 13:52 → EDOF 17:19 → 5EAST 17:19
PROVIDERS: Emergency Medicine; Internal Medicine Nephrology; Nurse Practitioner Adult Health; Pediatrics
PROC: 5A1D60Z (ICD-10-PCS; principal; 2016-09-26)
DX: N39.0 Urinary tract infection, site not specified (principal); I50.42 Chronic combined systolic (congestive) and diastolic (congestive) heart failure; E11.8 Type 2 diabetes mellitus with unspecified complications; K21.9 Gastro-esophageal reflux disease without esophagitis; E78.5 Hyperlipidemia, unspecified; J44.9 Chronic obstructive pulmonary disease, unspecified; I95.9 Hypotension, unspecified; I12.0 Hypertensive chronic kidney disease with stage 5 chronic kidney disease or end stage renal disease; E11.22 Type 2 diabetes mellitus with diabetic chronic kidney disease; K31.89 Other diseases of stomach and duodenum; N18.6 End stage renal disease; I51.7 Cardiomegaly; E03.9 Hypothyroidism, unspecified; R06.02 Shortness of breath; J90 Pleural effusion, not elsewhere classified; I48.91 Unspecified atrial fibrillation; C92.10 Chronic myeloid leukemia, BCR/ABL-positive, not having achieved remission; G47.00 Insomnia, unspecified; L89.619 Pressure ulcer of right heel, unspecified stage; R63.5 Abnormal weight gain; S91.301A Unspecified open wound, right foot, initial encounter; L89.629 Pressure ulcer of left heel, unspecified stage; X58.XXXA Exposure to other specified factors, initial encounter; G47.33 Obstructive sleep apnea (adult) (pediatric); Z99.2 Dependence on renal dialysis; Z99.81 Dependence on supplemental oxygen; Z87.891 Personal history of nicotine dependence; Z85.850 Personal history of malignant neoplasm of thyroid; Z86.718 Personal history of other venous thrombosis and embolism; Z88.8 Allergy status to other drugs, medicaments and biological substances; Z68.30 Body mass index [BMI] 30.0-30.9, adult; Z79.01 Long term (current) use of anticoagulants; Z79.4 Long term (current) use of insulin; Z89.422 Acquired absence of other left toe(s); Y92.9 Unspecified place or not applicable
CPT/HCPCS: 71010; 71020; 80048; 80053; 80069; 80170; 81003; 82948; 85025; 85027; 85610; 86706; 87040; 87077; 87086; 87186; 87340; 93005; 94660; 94799; 99202; 99281; 99285; J1580; J1644; J1815; J1956; J7040; J7050

== ENCOUNTER 2016-10-10 15:28 | Inpatient (IN) | payer OTHER ==
[~2016-10-10] VITALS: Ht 188 cm; Wt 105.7 kg
[~2016-10-10 15:28] MED LIST changes: +GENTAMICIN40 MG/1 ML IV; +TRAZODONE HCL100 MG PO
[2016-10-10 16:25] LABS: EOSINOPHIL (%) 1.7 % (0-5); EOSINOPHIL COUNT 0.1 K/uL (0-0.3); HEMATOCRIT 29.9 % (38.0-50.0); IMMATURE GRANULOCYTE (%) 0.4 % (0.0-0.7); INSTRUMENT ABS NEUTROPHIL CT 5.5 K/uL; LYMPHOCYTE COUNT 0.9 K/uL (1.0-2.8); MCH 31.4 PG (29.0-34.0); MCHC 31.4 G/DL (30.0-36.0); MEAN PLAT.VOLUME 9.5 uM^3 (9.0-12.4); MONOCYTE (%) 8.5 % (3-12); MONOCYTE COUNT 0.6 K/uL (0-0.8); NEUTROPHIL (%) 76.5 % (45-76); NEUTROPHIL COUNT 5.5 K/uL (1.8-6.4); PLATELET COUNT 204 K/uL (156-360); RBC DIS.WIDTH-CV 17.2 % (11.8-14.6); RBC DIS.WIDTH-SD 62.2 % (39-53); RED BLOOD COUNT 2.99 M/uL (4.00-5.50); WHITE BLOOD COUNT 7.2 K/uL (4.1-10.2)
[2016-10-10 16:34] LABS: CHLORIDE 99 mEq/L (99-109); POTASSIUM 3.8 mEq/L (3.7-5.4); SODIUM 139 mEq/L (136-147)
[2016-10-10 16:36] LABS: GLUCOSE 225 mg/dL (70-99)
[2016-10-10 16:38] LABS: ANION GAP 14 MEQ/L (2-14)
[2016-10-10 16:40] LABS: GFR ESTIMATE (CALCULATED) 12 mL/min/
[2016-10-10 16:41] LABS: UREA NITROGEN (BUN) 48 mg/dL (9-23)
[2016-10-10 16:48] LABS: TROP-I INTERPRETATION NEGATIVE; TROPONIN-I 0.13 ng/mL (0.0-0.30)
[2016-10-10] MEDS ORDERED: DESYREL100 MG PO (20:29)
[2016-10-10 23:08] LABS: POINT-OF-CARE METER ID UU13113747
[2016-10-10 23:39] LABS: INTER. NORMALIZED RATIO 2.6; PROTHROMBIN TIME 27.4 (9.2-11.2)
[2016-10-11 00:31] LABS: TOTAL BILIRUBIN 0.6 mg/dL (0.0-1.0)
[2016-10-11 00:32] LABS: ALKALINE PHOSPHATASE 154 IU/L (3-129)
[2016-10-11 00:35] LABS: DIRECT BILIRUBIN 0.4 mg/dL (0.0-0.3)
[2016-10-11 00:45] VITALS: BP 98/53
[2016-10-11 07:20] VITALS: BP 98/55
[2016-10-11 07:46] LABS: INTER. NORMALIZED RATIO 2.6; PROTHROMBIN TIME 27.4 (9.2-11.2)
[2016-10-11 10:47] LABS: EOSINOPHIL (%) 1.8 % (0-5); EOSINOPHIL COUNT 0.1 K/uL (0-0.3); HEMATOCRIT 29.9 % (38.0-50.0); IMMATURE GRANULOCYTE (%) 0.4 % (0.0-0.7); INSTRUMENT ABS NEUTROPHIL CT 5.6 K/uL; LYMPHOCYTE COUNT 1.1 K/uL (1.0-2.8); MCH 32.2 PG (29.0-34.0); MCHC 31.1 G/DL (30.0-36.0); MCV 103.5 FL (86-99); MEAN PLAT.VOLUME 10.1 uM^3 (9.0-12.4); MONOCYTE (%) 11.2 % (3-12); MONOCYTE COUNT 0.9 K/uL (0-0.8); NEUTROPHIL (%) 72.4 % (45-76); NEUTROPHIL COUNT 5.6 K/uL (1.8-6.4); PLATELET COUNT 198 K/uL (156-360); RBC DIS.WIDTH-CV 17.6 % (11.8-14.6); RBC DIS.WIDTH-SD 65.8 % (39-53); RED BLOOD COUNT 2.89 M/uL (4.00-5.50); WHITE BLOOD COUNT 7.7 K/uL (4.1-10.2)
[2016-10-11 11:17] LABS: POINT-OF-CARE METER ID UU13113725
[2016-10-11 12:55] VITALS: BP 97/57
[2016-10-11 17:08] LABS: ADD MIUA? YES; BILIRUBIN NEGATIVE; BLOOD LARGE; COLOR AMBER ((YELLOW)); GLUCOSE (STRIP) NEGATIVE; KETONES NEGATIVE; LEUKOCYTES MODERATE; NITRITE NEGATIVE; PROTEIN (STRIP) 30; SPECIFIC GRAVITY 1.019 (1.000-1.030); UROBILINOGEN 0.2 MG/DL (0.2-1.0)
[2016-10-11 17:12] LABS: BACTERIA RARE /HPF; CALCIUM CARBONATE CRYSTALS 1+ /HPF; EPITHELIAL CELLS 1+ /HPF; MUCUS TRACE /LPF; RED BLOOD CELLS TNTC /HPF (0-5); WHITE BLOOD CELLS 20-30 /HPF (0-5)
[2016-10-11 17:43] VITALS: BP 96/55
[2016-10-11 19:54] VITALS: BP 100/59
[2016-10-11 23:12] VITALS: BP 88/51
[2016-10-12 02:52] VITALS: BP 89/55
[2016-10-12 06:27] LABS: POINT-OF-CARE METER ID UU13113725
[2016-10-12] MEDS ORDERED: BACTROBAN OINTM22 GM TP (07:45)
[2016-10-12] MEDS ORDERED: SONATA5 MG PO (07:45)
[2016-10-12 08:19] LABS: ALKALINE PHOSPHATASE 128 IU/L (3-129); ANION GAP 17 MEQ/L (2-14); CHLORIDE 94 MEQ/L (99-109); DIRECT BILIRUBIN 0.2 mg/dL (0.0-0.3); GLUCOSE 207 mg/dL (70-99); SAMPLE HEMOLYSIS CHECK 0; SAMPLE ICTERIC CHECK 0; SAMPLE LIPEMIA CHECK 0; SODIUM 134 MEQ/L (136-147); TOTAL BILIRUBIN 0.7 MG/DL (0.0-1.0)
[2016-10-12 08:21] LABS: GFR ESTIMATE (CALCULATED) 7 mL/min/; UREA NITROGEN (BUN) 82 mg/dL (9-23)
[2016-10-12 08:32] LABS: HEMATOCRIT 30.2 % (38.0-50.0); MCH 32.6 PG (29.0-34.0); MCHC 32.1 G/DL (30.0-36.0); MCV 101.3 FL (86-99); PLATELET COUNT 204 K/uL (156-360); RBC DIS.WIDTH-CV 17.5 % (11.8-14.6); RED BLOOD COUNT 2.98 M/uL (4.00-5.50); WHITE BLOOD COUNT 7.8 K/uL (4.1-10.2)
[2016-10-12 09:54] LABS: INTER. NORMALIZED RATIO 3.4; PROTHROMBIN TIME 35.8 (9.2-11.2)
[2016-10-12 13:15] LABS: POINT-OF-CARE METER ID UU13113725
[2016-10-12 15:11] LABS: POINT-OF-CARE METER ID UU13113725
[2016-10-12 16:07] VITALS: BP 97/60
[2016-10-12 21:59] LABS: POINT-OF-CARE METER ID UU13113725
[2016-10-12 22:49] VITALS: BP 104/63
[2016-10-13 06:43] LABS: INTER. NORMALIZED RATIO 3.2; PROTHROMBIN TIME 33.6 (9.2-11.2)
[2016-10-13 07:40] VITALS: BP 90/54
[2016-10-13 11:55] LABS: POINT-OF-CARE METER ID UU13113725
[2016-10-13 15:58] LABS: POINT-OF-CARE METER ID UU13113725
[2016-10-13 16:26] VITALS: BP 96/58
[2016-10-13 21:29] LABS: POINT-OF-CARE METER ID UU13113725; POINT-OF-CARE USER ID 609231305
[2016-10-14 00:05] VITALS: BP 93/53
[2016-10-14 06:11] LABS: POINT-OF-CARE USER ID 609231305
[2016-10-14 07:03] LABS: HEMATOCRIT 28.6 % (38.0-50.0); MCH 32.4 PG (29.0-34.0); MCHC 31.5 G/DL (30.0-36.0); MCV 102.9 FL (86-99); MEAN PLAT.VOLUME 9.9 uM^3 (9.0-12.4); PLATELET COUNT 209 K/uL (156-360); RBC DIS.WIDTH-CV 17.2 % (11.8-14.6); RBC DIS.WIDTH-SD 64.2 % (39-53); RED BLOOD COUNT 2.78 M/uL (4.00-5.50)
[2016-10-14 07:08] LABS: INTER. NORMALIZED RATIO 3.6; PROTHROMBIN TIME 38.3 (9.2-11.2)
[2016-10-14 07:27] LABS: ALKALINE PHOSPHATASE 126 IU/L (3-129); ANION GAP 17 MEQ/L (2-14); CHLORIDE 92 MEQ/L (99-109); DIRECT BILIRUBIN 0.3 mg/dL (0.0-0.3); GFR ESTIMATE (CALCULATED) 8 mL/min/; GLUCOSE 168 mg/dL (70-99); POTASSIUM 4.4 MEQ/L (3.7-5.4); SAMPLE HEMOLYSIS CHECK 0; SAMPLE ICTERIC CHECK 0; SAMPLE LIPEMIA CHECK 0; SODIUM 136 MEQ/L (136-147); TOTAL BILIRUBIN 0.6 MG/DL (0.0-1.0); UREA NITROGEN (BUN) 86 mg/dL (9-23)
[2016-10-14 13:07] LABS: POINT-OF-CARE METER ID UU13113725
[2016-10-14 15:55] VITALS: BP 92/61
[2016-10-14 22:44] VITALS: BP 109/58
[2016-10-15 05:51] LABS: POINT-OF-CARE METER ID UU13113725
[2016-10-15 07:05] LABS: EOSINOPHIL (%) 3.6 % (0-5); EOSINOPHIL COUNT 0.3 K/uL (0-0.3); HEMATOCRIT 30.2 % (38.0-50.0); IMMATURE GRANULOCYTE (%) 0.4 % (0.0-0.7); INSTRUMENT ABS NEUTROPHIL CT 5.1 K/uL; LYMPHOCYTE COUNT 1.3 K/uL (1.0-2.8); MCH 31.1 PG (29.0-34.0); MCHC 30.1 G/DL (30.0-36.0); MCV 103.1 FL (86-99); MEAN PLAT.VOLUME 9.4 uM^3 (9.0-12.4); NEUTROPHIL (%) 65.9 % (45-76); NEUTROPHIL COUNT 5.1 K/uL (1.8-6.4); PLATELET COUNT 205 K/uL (156-360); RBC DIS.WIDTH-CV 17.1 % (11.8-14.6); RBC DIS.WIDTH-SD 63.9 % (39-53); RED BLOOD COUNT 2.93 M/uL (4.00-5.50); WHITE BLOOD COUNT 7.7 K/uL (4.1-10.2)
[2016-10-15 07:11] VITALS: BP 87/51
[2016-10-15 07:23] LABS: INTER. NORMALIZED RATIO 2.4
[2016-10-15 07:25] LABS: PROTHROMBIN TIME 25.5 (9.2-11.2)
[2016-10-15 07:35] LABS: ALKALINE PHOSPHATASE 124 IU/L (3-129); ANION GAP 13 MEQ/L (2-14); CHLORIDE 95 MEQ/L (99-109); GFR ESTIMATE (CALCULATED) 11 mL/min/; POTASSIUM 4.1 MEQ/L (3.7-5.4); SAMPLE HEMOLYSIS CHECK 0; SAMPLE ICTERIC CHECK 0; SAMPLE LIPEMIA CHECK 0; SODIUM 137 MEQ/L (136-147); TOTAL BILIRUBIN 0.7 MG/DL (0.0-1.0); UREA NITROGEN (BUN) 50 mg/dL (9-23)
[2016-10-15 07:39] LABS: GLUCOSE 118 mg/dL (70-99)
[2016-10-15 10:55] VITALS: BP 81/51
[2016-10-15 12:04] LABS: POINT-OF-CARE METER ID UU13113725
[2016-10-15] MEDS ORDERED: Chronulac,Cephulac,E PO (15:20)
[2016-10-15] MEDS ORDERED: COUMADIN1 MG PO (15:21)
[2016-10-15 15:55] VITALS: BP 97/57
[2016-10-15 16:30] VITALS: BP 97/57
[2016-10-15 16:38] LABS: POINT-OF-CARE METER ID UU13113725
== END 2016-10-15 17:30 | disposition home health service (06) | DRG 441 ==
LOC: EME 15:28 → 5EAST 21:35 → EDOF 21:35 → 5EAST 10-11 00:29
PROVIDERS: Emergency Medicine; Hospitalist; Internal Medicine Nephrology; Nurse Practitioner Adult Health; Pediatrics; Physician Assistant; Physician Assistant Medical
PROC: 5A1D60Z (ICD-10-PCS; principal; 2016-10-12)
DX: K72.90 Hepatic failure, unspecified without coma (principal); G93.41 Metabolic encephalopathy; I13.2 Hypertensive heart and chronic kidney disease with heart failure and with stage 5 chronic kidney disease, or end stage renal disease; I50.22 Chronic systolic (congestive) heart failure; J44.9 Chronic obstructive pulmonary disease, unspecified; G47.33 Obstructive sleep apnea (adult) (pediatric); Z99.2 Dependence on renal dialysis; Z95.810 Presence of automatic (implantable) cardiac defibrillator; Z89.412 Acquired absence of left great toe; N18.6 End stage renal disease; Z87.891 Personal history of nicotine dependence; E11.22 Type 2 diabetes mellitus with diabetic chronic kidney disease; D64.9 Anemia, unspecified; E78.5 Hyperlipidemia, unspecified; E03.9 Hypothyroidism, unspecified; I48.2 Chronic atrial fibrillation; Z79.01 Long term (current) use of anticoagulants; K21.9 Gastro-esophageal reflux disease without esophagitis; K59.00 Constipation, unspecified; M10.9 Gout, unspecified; C90.00 Multiple myeloma not having achieved remission; I35.0 Nonrheumatic aortic (valve) stenosis; I42.9 Cardiomyopathy, unspecified; L89.620 Pressure ulcer of left heel, unstageable; L89.612 Pressure ulcer of right heel, stage 2; N28.1 Cyst of kidney, acquired; R31.29 Other microscopic hematuria; K74.60 Unspecified cirrhosis of liver
CPT/HCPCS: 70220; 70450; 71010; 74176; 76705; 80048; 80053; 80069; 80076; 81003; 82140; 82948; 83605; 84484; 85025; 85027; 85610; 87040; 87086; 93005; 94660; 94799; 99281; 99285; G0480; J1200; J1644; J1815; J1956; J2930; P9047

== ENCOUNTER 2016-10-26 21:27 | Inpatient (IN) | payer OTHER ==
[~2016-10-26] VITALS: Ht 188 cm; Wt 108.6 kg
[~2016-10-26 21:27] MED LIST changes: +BACTROBAN OINTM22 GM TP; +COUMADIN1 MG PO; +Chronulac,Cephulac,E PO; +DESYREL100 MG PO; +SONATA5 MG PO
[2016-10-26 23:22] LABS: POINT-OF-CARE METER ID UU13113747
[2016-10-26 23:37] LABS: C DIFF TOXIN NEGATIVE (NEGATIVE)
[2016-10-26 23:38] LABS: PROBE CHECK PASS; SPECIMEN PROCESSING CONTROL PASS
[2016-10-27] VITALS (12 sets, daily range): BP systolic 74–95; BP diastolic 45–56
[2016-10-27 00:02] LABS: MCH 31.5 PG (29.0-34.0); MCHC 31.2 G/DL (30.0-36.0); MCV 101.2 FL (86-99); MEAN PLAT.VOLUME 10.1 uM^3 (9.0-12.4); PLATELET COUNT 144 K/uL (156-360); RBC DIS.WIDTH-CV 16.5 % (11.8-14.6); RBC DIS.WIDTH-SD 60.7 % (39-53); RED BLOOD COUNT 2.57 M/uL (4.00-5.50); WHITE BLOOD COUNT 9.4 K/uL (4.1-10.2)
[2016-10-27 00:24] LABS: TROP-I INTERPRETATION NEGATIVE; TROPONIN-I 0.13 ng/mL (0.0-0.30)
[2016-10-27 00:25] LABS: INTER. NORMALIZED RATIO 2.1; PROTHROMBIN TIME 21.9 (9.2-11.2); PTT 37.6 (25-32)
[2016-10-27 00:28] LABS: CHLORIDE 108 mEq/L (99-109); POTASSIUM 3.1 mEq/L (3.7-5.4); SODIUM 143 mEq/L (136-147)
[2016-10-27 00:30] LABS: GLUCOSE 98 mg/dL (70-99)
[2016-10-27 00:31] LABS: ANION GAP 11 MEQ/L (2-14)
[2016-10-27 00:32] LABS: TOTAL BILIRUBIN 0.6 mg/dL (0.0-1.0)
[2016-10-27 00:33] LABS: ALKALINE PHOSPHATASE 117 IU/L (3-129)
[2016-10-27 00:34] LABS: GFR ESTIMATE (CALCULATED) 15 mL/min/
[2016-10-27 00:35] LABS: UREA NITROGEN (BUN) 39 mg/dL (9-23)
[2016-10-27 00:37] LABS: LIPASE 19 U/L (1.0-51.0)
[2016-10-27] MEDS ORDERED: MIDODRINE HCL10 MG PO (01:02)
[2016-10-27] MEDS ORDERED: WARFARIN SODIUM5 MG PO ×2 (01:03)
[2016-10-27] MEDS ORDERED: NOVOLOG 10100 UNITS/ SC ×2 (01:04)
[2016-10-27] MEDS ORDERED: ENULOSE10 GM/15 M PO ×2 (01:05→01:06)
[2016-10-27] MEDS ORDERED: MELATONIN5 M1 PO (01:07)
[2016-10-27 01:56] LABS: MAGNESIUM 1.7 mg/dL (1.3-2.7)
[2016-10-27 02:56] LABS: POINT-OF-CARE METER ID UU13113702
[2016-10-27 05:23] LABS: METH RESISTANT S AUREUS PCR NEGATIVE (NEGATIVE)
[2016-10-27 05:27] LABS: PROBE CHECK PASS; SPECIMEN PROCESSING CONTROL PASS
[2016-10-27 05:59] LABS: HEMATOCRIT 28.3 % (38.0-50.0); MCH 31.9 PG (29.0-34.0); MCHC 31.1 G/DL (30.0-36.0); MCV 102.5 FL (86-99); MEAN PLAT.VOLUME 10.1 uM^3 (9.0-12.4); NRBC (%) 0.2 /100 WBC (0-0); PLATELET COUNT 166 K/uL (156-360); RBC DIS.WIDTH-CV 16.6 % (11.8-14.6); RBC DIS.WIDTH-SD 62.3 % (39-53); RED BLOOD COUNT 2.76 M/uL (4.00-5.50); WHITE BLOOD COUNT 11.5 K/uL (4.1-10.2)
[2016-10-27 06:22] LABS: TROP-I INTERPRETATION NEGATIVE; TROPONIN-I 0.14 ng/mL (0.0-0.30)
[2016-10-27 06:23] LABS: ALKALINE PHOSPHATASE 140 IU/L (3-129); ANION GAP 14 MEQ/L (2-14); CHLORIDE 101 MEQ/L (99-109); GFR ESTIMATE (CALCULATED) 11 mL/min/; GLUCOSE 138 mg/dL (70-99); POTASSIUM 3.9 MEQ/L (3.7-5.4); SAMPLE HEMOLYSIS CHECK 0; SAMPLE ICTERIC CHECK 0; SAMPLE LIPEMIA CHECK 0; SODIUM 137 MEQ/L (136-147); TOTAL BILIRUBIN 0.8 MG/DL (0.0-1.0); UREA NITROGEN (BUN) 50 mg/dL (9-23)
[2016-10-27 12:04] LABS: POINT-OF-CARE METER ID UU14162636
[2016-10-27 12:28] LABS: TROP-I INTERPRETATION NEGATIVE; TROPONIN-I 0.13 ng/mL (0.0-0.30)
[2016-10-27 16:52] LABS: INTER. NORMALIZED RATIO 2.1; PROTHROMBIN TIME 22.2 (9.2-11.2)
[2016-10-27 17:27] LABS: POINT-OF-CARE METER ID UU14162636
[2016-10-27 21:29] LABS: POINT-OF-CARE METER ID UU13113731; POINT-OF-CARE USER ID LABHNS84
[2016-10-28 01:00] VITALS: BP 71/47
[2016-10-28 03:00] VITALS: BP 73/45
[2016-10-28 05:00] VITALS: BP 74/46
[2016-10-28 06:02] LABS: HEMATOCRIT 28.9 % (38.0-50.0); MCHC 31.5 G/DL (30.0-36.0); MCV 101.8 FL (86-99); MEAN PLAT.VOLUME 10.2 uM^3 (9.0-12.4); PLATELET COUNT 171 K/uL (156-360); RBC DIS.WIDTH-CV 16.5 % (11.8-14.6); RBC DIS.WIDTH-SD 60.8 % (39-53); RED BLOOD COUNT 2.84 M/uL (4.00-5.50); WHITE BLOOD COUNT 8.4 K/uL (4.1-10.2)
[2016-10-28 06:15] LABS: INTER. NORMALIZED RATIO 2.4; PROTHROMBIN TIME 25.4 (9.2-11.2)
[2016-10-28 06:38] LABS: ALKALINE PHOSPHATASE 114 IU/L (3-129); ANION GAP 13 MEQ/L (2-14); CHLORIDE 99 MEQ/L (99-109); DIRECT BILIRUBIN 0.3 mg/dL (0.0-0.3); POTASSIUM 3.8 MEQ/L (3.7-5.4); SAMPLE HEMOLYSIS CHECK 0; SAMPLE ICTERIC CHECK 0; SAMPLE LIPEMIA CHECK 0; SODIUM 137 MEQ/L (136-147)
[2016-10-28 06:39] LABS: GFR ESTIMATE (CALCULATED) 8 mL/min/; GLUCOSE 52 mg/dL (70-99); TOTAL BILIRUBIN 0.6 MG/DL (0.0-1.0); UREA NITROGEN (BUN) 78 mg/dL (9-23)
[2016-10-28 08:00] VITALS: BP 85/48
[2016-10-28 08:03] LABS: POINT-OF-CARE METER ID UU13113731
[2016-10-28 08:33] LABS: POINT-OF-CARE METER ID UU13113731
[2016-10-28 09:07] LABS: POINT-OF-CARE METER ID UU13113731
[2016-10-28 10:27] LABS: POINT-OF-CARE METER ID UU13113731
[2016-10-28 12:50] LABS: POINT-OF-CARE METER ID UU13113681
[2016-10-28 18:30] LABS: POINT-OF-CARE METER ID UU13113725
[2016-10-28 19:17] VITALS: BP 86/52
[2016-10-28 22:22] LABS: POINT-OF-CARE METER ID UU13113725
[2016-10-28 22:57] VITALS: BP 87/49
[2016-10-29 02:55] VITALS: BP 91/52
[2016-10-29 06:03] LABS: EOSINOPHIL (%) 2.9 % (0-5); EOSINOPHIL COUNT 0.2 K/uL (0-0.3); HEMATOCRIT 28.7 % (38.0-50.0); IMMATURE GRANULOCYTE (%) 0.5 % (0.0-0.7); INSTRUMENT ABS NEUTROPHIL CT 5.4 K/uL; LYMPHOCYTE COUNT 1.1 K/uL (1.0-2.8); MCH 31.3 PG (29.0-34.0); MCV 101.1 FL (86-99); MEAN PLAT.VOLUME 9.9 uM^3 (9.0-12.4); MONOCYTE (%) 15.6 % (3-12); MONOCYTE COUNT 1.3 K/uL (0-0.8); NEUTROPHIL (%) 67.1 % (45-76); NEUTROPHIL COUNT 5.4 K/uL (1.8-6.4); PLATELET COUNT 178 K/uL (156-360); RBC DIS.WIDTH-CV 16.4 % (11.8-14.6); RBC DIS.WIDTH-SD 60.5 % (39-53); RED BLOOD COUNT 2.84 M/uL (4.00-5.50)
[2016-10-29 06:40] LABS: ALKALINE PHOSPHATASE 127 IU/L (3-129); ANION GAP 12 MEQ/L (2-14); CHLORIDE 99 MEQ/L (99-109); GFR ESTIMATE (CALCULATED) 11 mL/min/; POTASSIUM 4.1 MEQ/L (3.7-5.4); SAMPLE HEMOLYSIS CHECK 0; SAMPLE ICTERIC CHECK 0; SAMPLE LIPEMIA CHECK 0; SODIUM 140 MEQ/L (136-147); TOTAL BILIRUBIN 0.6 MG/DL (0.0-1.0); UREA NITROGEN (BUN) 61 mg/dL (9-23)
[2016-10-29 06:43] LABS: GLUCOSE 159 mg/dL (70-99)
[2016-10-29 06:56] LABS: INTER. NORMALIZED RATIO 2.9; PROTHROMBIN TIME 30.6 (9.2-11.2)
[2016-10-29 08:41] VITALS: BP 101/58
[2016-10-29] MEDS ORDERED: XIFAXAN550 MG PO (11:26)
[2016-10-29] MEDS ORDERED: WARFARIN SODIUM5 MG PO (11:26)
[2016-10-29] MEDS ORDERED: LEVEMIR100 UNIT/2 SC (11:26)
== END 2016-10-29 12:35 | disposition home or self-care (01) | DRG 391 ==
LOC: EME 21:27 → EDOF 10-27 02:53 → 4WEST 10-27 02:53 → 5EAST 10-28 17:37
PROVIDERS: Emergency Medicine; Internal Medicine; Internal Medicine Gastroenterology; Nurse Practitioner Adult Health; Pediatrics; Physician Assistant
PROC: 5A1D00Z (ICD-10-PCS; principal; 2016-10-28)
PROC: 5A09357 Assistance with Respiratory Ventilation, Less than 24 Consecutive Hours, Continuous Positive Airway Pressure (ICD-10-PCS; 2016-10-29)
DX: R19.7 Diarrhea, unspecified (principal); T47.3X5A Adverse effect of saline and osmotic laxatives, initial encounter; R11.2 Nausea with vomiting, unspecified; I95.9 Hypotension, unspecified; E86.1 Hypovolemia; E83.51 Hypocalcemia; E87.6 Hypokalemia; I13.2 Hypertensive heart and chronic kidney disease with heart failure and with stage 5 chronic kidney disease, or end stage renal disease; I50.22 Chronic systolic (congestive) heart failure; E11.22 Type 2 diabetes mellitus with diabetic chronic kidney disease; N18.6 End stage renal disease; D64.9 Anemia, unspecified; R19.5 Other fecal abnormalities; E78.00 Pure hypercholesterolemia, unspecified; E78.5 Hyperlipidemia, unspecified; G47.33 Obstructive sleep apnea (adult) (pediatric); I25.10 Atherosclerotic heart disease of native coronary artery without angina pectoris; I42.9 Cardiomyopathy, unspecified; I48.2 Chronic atrial fibrillation; J44.9 Chronic obstructive pulmonary disease, unspecified; K21.9 Gastro-esophageal reflux disease without esophagitis; K74.60 Unspecified cirrhosis of liver; M10.9 Gout, unspecified; I35.0 Nonrheumatic aortic (valve) stenosis; R74.8 Abnormal levels of other serum enzymes; C92.10 Chronic myeloid leukemia, BCR/ABL-positive, not having achieved remission; E89.0 Postprocedural hypothyroidism; E11.649 Type 2 diabetes mellitus with hypoglycemia without coma; Z79.4 Long term (current) use of insulin; Z99.2 Dependence on renal dialysis; Z87.891 Personal history of nicotine dependence; Z99.81 Dependence on supplemental oxygen; Z95.0 Presence of cardiac pacemaker; Z88.1 Allergy status to other antibiotic agents
CPT/HCPCS: 71010; 80053; 80069; 80076; 81003; 82140; 82948; 83605; 83690; 83735; 84484; 85025; 85027; 85610; 85730; 87040; 87177; 87493; 87506; 87641; 93005; 94660; 94799; 99202; 99281; 99285; A6260; J0610; J1815; J2270; J2405; J3010; J3480; J7030; J7050

== ENCOUNTER 2016-11-10 08:45 | Emergency (ER) | payer OTHER ==
[~2016-11-10] VITALS: Ht 188 cm; Wt 110.4 kg
[~2016-11-10 08:45] MED LIST changes: +MELATONIN5 M1 PO; +MIDODRINE HCL10 MG PO; +XIFAXAN550 MG PO
[2016-11-10 09:59] LABS: EOSINOPHIL COUNT 0.1 K/uL (0-0.3); HEMATOCRIT 30.7 % (38.0-50.0); IMMATURE GRANULOCYTE (%) 0.4 % (0.0-0.7); LYMPHOCYTE COUNT 0.9 K/uL (1.0-2.8); MCH 29.9 PG (29.0-34.0); MCHC 30.6 G/DL (30.0-36.0); MCV 97.8 FL (86-99); MEAN PLAT.VOLUME 9.5 uM^3 (9.0-12.4); MONOCYTE (%) 13.2 % (3-12); MONOCYTE COUNT 1.4 K/uL (0-0.8); NEUTROPHIL (%) 77.1 % (45-76); PLATELET COUNT 228 K/uL (156-360); RBC DIS.WIDTH-CV 16.4 % (11.8-14.6); RBC DIS.WIDTH-SD 58.7 % (39-53); RED BLOOD COUNT 3.14 M/uL (4.00-5.50); WHITE BLOOD COUNT 10.4 K/uL (4.1-10.2)
[2016-11-10 10:07] LABS: CHLORIDE 100 mEq/L (99-109); POTASSIUM 3.6 mEq/L (3.7-5.4); SODIUM 140 mEq/L (136-147)
[2016-11-10 10:10] LABS: GLUCOSE 106 mg/dL (70-99)
[2016-11-10 10:11] LABS: INTER. NORMALIZED RATIO 2.1; PROTHROMBIN TIME 21.8 (9.2-11.2); PTT 34.9 (25-32)
[2016-11-10 10:11] LABS: ANION GAP 14 MEQ/L (2-14)
[2016-11-10 10:12] LABS: TOTAL BILIRUBIN 0.7 mg/dL (0.0-1.0)
[2016-11-10 10:13] LABS: ALKALINE PHOSPHATASE 150 IU/L (3-129)
[2016-11-10 10:14] LABS: GFR ESTIMATE (CALCULATED) 10 mL/min/
[2016-11-10 10:15] LABS: DIRECT BILIRUBIN 0.5 mg/dL (0.0-0.3); UREA NITROGEN (BUN) 44 mg/dL (9-23)
[2016-11-10 10:17] LABS: LIPASE 27 U/L (1.0-51.0)
[2016-11-10 10:20] LABS: TROP-I INTERPRETATION NEGATIVE; TROPONIN-I 0.15 ng/mL (0.0-0.30)
[2016-11-10 11:49] VITALS: BP 90/64
== END 2016-11-10 11:50 | disposition home or self-care (01) ==
LOC: EME 08:45
PROVIDERS: Emergency Medicine
DX: R06.02 Shortness of breath (principal); R53.83 Other fatigue; R19.7 Diarrhea, unspecified; Z87.891 Personal history of nicotine dependence; K21.9 Gastro-esophageal reflux disease without esophagitis; J44.9 Chronic obstructive pulmonary disease, unspecified; E78.5 Hyperlipidemia, unspecified; E11.9 Type 2 diabetes mellitus without complications; I50.9 Heart failure, unspecified; I11.0 Hypertensive heart disease with heart failure; K72.90 Hepatic failure, unspecified without coma; Z99.2 Dependence on renal dialysis
CPT/HCPCS: 71010; 80048; 80076; 82140; 83690; 83880; 84484; 85025; 85610; 85730; 93005; 99281; 99284

== ENCOUNTER 2016-11-21 11:59 | Inpatient (IN) | payer OTHER ==
[~2016-11-21] VITALS: Ht 188 cm; Wt 110.1 kg
[2016-11-21 12:52] LABS: EOSINOPHIL (%) 1.8 % (0-5); EOSINOPHIL COUNT 0.1 K/uL (0-0.3); HEMATOCRIT 32.2 % (38.0-50.0); IMMATURE GRANULOCYTE (%) 0.3 % (0.0-0.7); INSTRUMENT ABS NEUTROPHIL CT 5.7 K/uL; LYMPHOCYTE COUNT 1.1 K/uL (1.0-2.8); MCH 29.9 PG (29.0-34.0); MCHC 31.1 G/DL (30.0-36.0); MCV 96.1 FL (86-99); MEAN PLAT.VOLUME 9.7 uM^3 (9.0-12.4); MONOCYTE (%) 10.2 % (3-12); MONOCYTE COUNT 0.8 K/uL (0-0.8); NEUTROPHIL (%) 73.6 % (45-76); NEUTROPHIL COUNT 5.7 K/uL (1.8-6.4); PLATELET COUNT 197 K/uL (156-360); RBC DIS.WIDTH-CV 17.4 % (11.8-14.6); RBC DIS.WIDTH-SD 60.2 % (39-53); RED BLOOD COUNT 3.35 M/uL (4.00-5.50); WHITE BLOOD COUNT 7.8 K/uL (4.1-10.2)
[2016-11-21 13:03] LABS: CHLORIDE 98 mEq/L (99-109); POTASSIUM 4.1 mEq/L (3.7-5.4); SODIUM 140 mEq/L (136-147)
[2016-11-21 13:05] LABS: GLUCOSE 135 mg/dL (70-99)
[2016-11-21 13:06] LABS: ANION GAP 21 MEQ/L (2-14)
[2016-11-21 13:07] LABS: TOTAL BILIRUBIN 0.9 mg/dL (0.0-1.0)
[2016-11-21 13:08] LABS: SERUM ETHYL ALCOHOL < 10 mg/dL
[2016-11-21 13:09] LABS: ALKALINE PHOSPHATASE 144 IU/L (3-129); GFR ESTIMATE (CALCULATED) 6 mL/min/
[2016-11-21 13:10] LABS: UREA NITROGEN (BUN) 81 mg/dL (9-23)
[2016-11-21 13:13] LABS: TROP-I INTERPRETATION NEGATIVE; TROPONIN-I 0.15 ng/mL (0.0-0.30)
[2016-11-21] MEDS ORDERED: LEVEMIR100 UNIT/2 SC (15:36)
[2016-11-21] MEDS ORDERED: XIFAXAN550 MG PO (15:41)
[2016-11-21] MEDS ORDERED: WARFARIN SODIUM5 MG PO (15:42)
[2016-11-21] MEDS ORDERED: LACTULOSE10 GM/151 PO (15:43)
[2016-11-21] MEDS ORDERED: WARFARIN SODIUM2 MG PO (15:43)
[2016-11-21 17:58] VITALS: BP 128/58
[2016-11-21 18:19] LABS: INTER. NORMALIZED RATIO 2.5
[2016-11-21 20:08] VITALS: BP 98/62
[2016-11-21 23:26] VITALS: BP 101/63
[2016-11-22 04:23] VITALS: BP 127/64
[2016-11-22 06:18] LABS: POINT-OF-CARE METER ID UU13113725
[2016-11-22 08:13] LABS: EOSINOPHIL (%) 2.6 % (0-5); EOSINOPHIL COUNT 0.2 K/uL (0-0.3); HEMATOCRIT 32.7 % (38.0-50.0); IMMATURE GRANULOCYTE (%) 0.4 % (0.0-0.7); LYMPHOCYTE COUNT 1.2 K/uL (1.0-2.8); MCH 29.5 PG (29.0-34.0); MCHC 31.2 G/DL (30.0-36.0); MCV 94.5 FL (86-99); MONOCYTE (%) 12.6 % (3-12); MONOCYTE COUNT 1.1 K/uL (0-0.8); NEUTROPHIL (%) 70.1 % (45-76); PLATELET COUNT 239 K/uL (156-360); RBC DIS.WIDTH-CV 17.3 % (11.8-14.6); RBC DIS.WIDTH-SD 58.9 % (39-53); RED BLOOD COUNT 3.46 M/uL (4.00-5.50); WHITE BLOOD COUNT 8.6 K/uL (4.1-10.2)
[2016-11-22 08:23] LABS: AMYLASE 51 IU/L (1-118); ANION GAP 17 MEQ/L (2-14); CHLORIDE 96 MEQ/L (99-109); POTASSIUM 3.9 MEQ/L (3.7-5.4); SAMPLE HEMOLYSIS CHECK 0; SAMPLE ICTERIC CHECK 0; SAMPLE LIPEMIA CHECK 0; SODIUM 139 MEQ/L (136-147)
[2016-11-22 08:28] LABS: GFR ESTIMATE (CALCULATED) 6 mL/min/
[2016-11-22 08:35] LABS: GLOBULINS 2.3 G/DL (2.3-3.5); UREA NITROGEN (BUN) 85 mg/dL (9-23)
[2016-11-22 08:39] LABS: GLUCOSE 95 mg/dL (70-99)
[2016-11-22 08:41] LABS: ANION GAP 18 MEQ/L (2-14); CHLORIDE 97 MEQ/L (99-109); GFR ESTIMATE (CALCULATED) 6 mL/min/; GLUCOSE 95 mg/dL (70-99); POTASSIUM 4.1 MEQ/L (3.7-5.4); SAMPLE HEMOLYSIS CHECK 0; SAMPLE ICTERIC CHECK 0; SAMPLE LIPEMIA CHECK 0; SODIUM 140 MEQ/L (136-147); UREA NITROGEN (BUN) 83 mg/dL (9-23)
[2016-11-22 09:18] LABS: INTER. NORMALIZED RATIO 3.1; PROTHROMBIN TIME 35.3 SEC (10.2-12.9)
[2016-11-22 10:30] LABS: ANTI-HEPATITIS A VIRUS (IGM) Nonreactive; HAV INDEX 0.12
[2016-11-22 12:22] LABS: POINT-OF-CARE METER ID UU13113725
[2016-11-22 16:22] LABS: POINT-OF-CARE METER ID UU13113725
[2016-11-22 16:29] VITALS: BP 116/76
[2016-11-22 23:25] VITALS: BP 124/66
[2016-11-23 06:56] LABS: INTER. NORMALIZED RATIO 4.1
[2016-11-23 07:10] LABS: PROTHROMBIN TIME 47.3 SEC (10.2-12.9)
[2016-11-23 07:56] VITALS: BP 97/57
[2016-11-23 08:09] LABS: ALKALINE PHOSPHATASE 116 IU/L (3-129); ANION GAP 15 MEQ/L (2-14); CHLORIDE 98 MEQ/L (99-109); GFR ESTIMATE (CALCULATED) 8 mL/min/; GLUCOSE 105 mg/dL (70-99); IRON 37 MCG/DL (35-150); POTASSIUM 3.7 MEQ/L (3.7-5.4); SAMPLE HEMOLYSIS CHECK 0; SAMPLE ICTERIC CHECK 0; SAMPLE LIPEMIA CHECK 0; SODIUM 142 MEQ/L (136-147); TOTAL BILIRUBIN 1.2 MG/DL (0.0-1.0); UREA NITROGEN (BUN) 46 mg/dL (9-23)
[2016-11-23 08:16] LABS: FERRITIN 69 NG/ML (22-322)
[2016-11-23 08:45] LABS: EOSINOPHIL (%) 2.1 % (0-5); EOSINOPHIL COUNT 0.2 K/uL (0-0.3); HEMATOCRIT 33.8 % (38.0-50.0); IMMATURE GRANULOCYTE (%) 0.5 % (0.0-0.7); INSTRUMENT ABS NEUTROPHIL CT 5.7 K/uL; LYMPHOCYTE COUNT 1.1 K/uL (1.0-2.8); MCH 30.6 PG (29.0-34.0); MCHC 31.1 G/DL (30.0-36.0); MCV 98.5 FL (86-99); MEAN PLAT.VOLUME 10.1 uM^3 (9.0-12.4); MONOCYTE (%) 12.9 % (3-12); NEUTROPHIL (%) 70.8 % (45-76); NEUTROPHIL COUNT 5.7 K/uL (1.8-6.4); PLATELET COUNT 231 K/uL (156-360); RBC DIS.WIDTH-CV 17.6 % (11.8-14.6); RED BLOOD COUNT 3.43 M/uL (4.00-5.50); WHITE BLOOD COUNT 8.1 K/uL (4.1-10.2)
[2016-11-23 15:54] LABS: POINT-OF-CARE METER ID UU13113725
[2016-11-23 16:13] LABS: POINT-OF-CARE METER ID UU13113725
[2016-11-23 16:49] VITALS: BP 135/56
[2016-11-23 19:22] LABS: POINT-OF-CARE METER ID UU13113725
[2016-11-23 21:16] LABS: HCV RNA (IU/mL) <15 IU/mL (<15)
[2016-11-23 21:44] LABS: POINT-OF-CARE METER ID UU13113725
[2016-11-23 23:31] LABS: MITOCHONDRIAL (M2) ANTIBODIES+ <=20.0 U (<=20.0)
[2016-11-24] VITALS (7 sets, daily range): BP systolic 75–113; BP diastolic 47–58
[2016-11-24 06:06] LABS: POINT-OF-CARE METER ID UU13113725
[2016-11-24 06:56] LABS: PROTHROMBIN TIME 57.3 SEC (10.2-12.9)
[2016-11-24 07:15] LABS: INTER. NORMALIZED RATIO 4.9
[2016-11-24 07:22] LABS: HCV RNA (LOG IU/mL) <1.18 (<1.18)
[2016-11-24 11:53] LABS: ALBUMIN 3.73 G/DL (3.6-4.9); ALBUMIN PERCENT 62.1 % (49.3-67.1); ALPHA-1 GLOBULIN 0.25 G/DL (0.15-0.40); ALPHA-1 PERCENT 4.2 % (2.1-5.5); ALPHA-2 GLOBULIN 0.61 G/DL (0.45-0.85); ALPHA-2 PERCENT 10.2 % (6.2-11.6); BETA PERCENT 10.3 % (8.9-15.8); GAMMA PERCENT 13.2 % (8.6-18.6); SERUM GEL NO. 91-3
[2016-11-24 16:58] LABS: POINT-OF-CARE METER ID UU13113725
[2016-11-24 21:21] LABS: POINT-OF-CARE METER ID UU13113725
[2016-11-25] VITALS (7 sets, daily range): BP systolic 20–92; BP diastolic 46–68
[2016-11-25 06:18] LABS: POINT-OF-CARE METER ID UU13113725
[2016-11-25 07:50] LABS: INTERPRETATION: Normal study.
[2016-11-25 08:17] LABS: EOSINOPHIL (%) 1.6 % (0-5); EOSINOPHIL COUNT 0.2 K/uL (0-0.3); IMMATURE GRANULOCYTE (%) 0.4 % (0.0-0.7); IMMATURE GRANULOCYTE COUNT 0.1 K/uL; INSTRUMENT ABS NEUTROPHIL CT 11.6 K/uL; MCH 30.7 PG (29.0-34.0); MCHC 32.2 G/DL (30.0-36.0); MCV 95.2 FL (86-99); MEAN PLAT.VOLUME 9.9 uM^3 (9.0-12.4); MONOCYTE (%) 11.4 % (3-12); MONOCYTE COUNT 1.7 K/uL (0-0.8); NEUTROPHIL (%) 79.5 % (45-76); NEUTROPHIL COUNT 11.6 K/uL (1.8-6.4); PLATELET COUNT 232 K/uL (156-360); RBC DIS.WIDTH-CV 17.3 % (11.8-14.6); RBC DIS.WIDTH-SD 59.7 % (39-53); RED BLOOD COUNT 3.36 M/uL (4.00-5.50); WHITE BLOOD COUNT 14.5 K/uL (4.1-10.2)
[2016-11-25 08:30] LABS: INTER. NORMALIZED RATIO 2.9; PROTHROMBIN TIME 33.2 SEC (10.2-12.9)
[2016-11-25 09:16] LABS: ANION GAP 14 MEQ/L (2-14); CHLORIDE 97 MEQ/L (99-109); GFR ESTIMATE (CALCULATED) 9 mL/min/; MAGNESIUM 2.3 mg/dl (1.3-2.7); POTASSIUM 3.6 MEQ/L (3.7-5.4); SAMPLE HEMOLYSIS CHECK 0; SAMPLE ICTERIC CHECK 0; SAMPLE LIPEMIA CHECK 0; SODIUM 136 MEQ/L (136-147); UREA NITROGEN (BUN) 47 mg/dL (9-23)
[2016-11-25 09:17] LABS: GLUCOSE 193 mg/dL (70-99)
[2016-11-25 13:41] LABS: POINT-OF-CARE METER ID UU13113725
[2016-11-25 16:21] LABS: POINT-OF-CARE METER ID UU13113725
[2016-11-26 03:42] VITALS: BP 85/54
[2016-11-26 05:53] LABS: MCH 29.8 PG (29.0-34.0); MCHC 30.3 G/DL (30.0-36.0); MCV 98.2 FL (86-99); MEAN PLAT.VOLUME 9.8 uM^3 (9.0-12.4); PLATELET COUNT 221 K/uL (156-360); RBC DIS.WIDTH-CV 17.2 % (11.8-14.6); RBC DIS.WIDTH-SD 61.7 % (39-53); RED BLOOD COUNT 3.36 M/uL (4.00-5.50); WHITE BLOOD COUNT 13.8 K/uL (4.1-10.2)
[2016-11-26 06:00] LABS: INTER. NORMALIZED RATIO 1.9; PROTHROMBIN TIME 21.5 SEC (10.2-12.9)
[2016-11-26 06:23] LABS: ANION GAP 11 MEQ/L (2-14); CHLORIDE 100 MEQ/L (99-109); GFR ESTIMATE (CALCULATED) 14 mL/min/; GLUCOSE 126 mg/dL (70-99); POTASSIUM 3.9 MEQ/L (3.7-5.4); SAMPLE HEMOLYSIS CHECK 0; SAMPLE ICTERIC CHECK 0; SAMPLE LIPEMIA CHECK 0; SODIUM 140 MEQ/L (136-147); UREA NITROGEN (BUN) 26 mg/dL (9-23)
[2016-11-26 08:17] VITALS: BP 87/50
[2016-11-26 11:45] VITALS: BP 93/51
[2016-11-26 16:10] VITALS: BP 93/51
[2016-11-26 17:21] LABS: AP Bone Isoenzyme 19 % (28-66); AP Intestine Isoenzyme 0 % (1-24); AP Liver Isoenzyme 81 % (25-69); AP Macrohepatic Isoenzyme 0 % (<=0); AP Placental Isoenzyme 0 % (<=0); Alkaline Phosphatase, Total 128 U/L (40-115)
[2016-11-26 19:23] VITALS: BP 102/62
[2016-11-26 22:57] VITALS: BP 95/54
[2016-11-27 03:10] VITALS: BP 84/54
[2016-11-27 06:20] LABS: HEMATOCRIT 31.9 % (38.0-50.0); MCH 30.2 PG (29.0-34.0); MCHC 31.3 G/DL (30.0-36.0); MCV 96.4 FL (86-99); MEAN PLAT.VOLUME 9.9 uM^3 (9.0-12.4); PLATELET COUNT 201 K/uL (156-360); RBC DIS.WIDTH-CV 17.2 % (11.8-14.6); RBC DIS.WIDTH-SD 61.1 % (39-53); RED BLOOD COUNT 3.31 M/uL (4.00-5.50); WHITE BLOOD COUNT 12.4 K/uL (4.1-10.2)
[2016-11-27 06:31] LABS: INTER. NORMALIZED RATIO 1.6; PROTHROMBIN TIME 18.1 SEC (10.2-12.9)
[2016-11-27 06:45] LABS: ANION GAP 10 MEQ/L (2-14); CHLORIDE 98 MEQ/L (99-109); GFR ESTIMATE (CALCULATED) 9 mL/min/; GLUCOSE 137 mg/dL (70-99); POTASSIUM 4.2 MEQ/L (3.7-5.4); SAMPLE HEMOLYSIS CHECK 0; SAMPLE ICTERIC CHECK 0; SAMPLE LIPEMIA CHECK 0; SODIUM 136 MEQ/L (136-147)
[2016-11-27 06:46] LABS: UREA NITROGEN (BUN) 43 mg/dL (9-23)
[2016-11-27 08:13] VITALS: BP 92/63
[2016-11-27 11:44] VITALS: BP 93/55
[2016-11-27 16:04] VITALS: BP 93/52
[2016-11-27 17:14] LABS: POINT-OF-CARE METER ID UU13113725
[2016-11-27 19:10] VITALS: BP 103/59
[2016-11-27 20:55] LABS: POINT-OF-CARE METER ID UU13113725
[2016-11-27 23:25] VITALS: BP 95/55
[2016-11-28 02:40] VITALS: BP 96/58
[2016-11-28 05:51] LABS: POINT-OF-CARE METER ID UU13113725
[2016-11-28] MEDS ORDERED: LACTULOSE10 GM/151 PO (07:36)
[2016-11-28] MEDS ORDERED: FERROUS SULFAT325 MG PO (07:36)
[2016-11-28 07:56] LABS: EOSINOPHIL (%) 2.2 % (0-5); EOSINOPHIL COUNT 0.3 K/uL (0-0.3); IMMATURE GRANULOCYTE (%) 0.6 % (0.0-0.7); IMMATURE GRANULOCYTE COUNT 0.1 K/uL; INSTRUMENT ABS NEUTROPHIL CT 9.6 K/uL; MCH 30.2 PG (29.0-34.0); MCHC 31.9 G/DL (30.0-36.0); MCV 94.5 FL (86-99); MEAN PLAT.VOLUME 9.8 uM^3 (9.0-12.4); MONOCYTE (%) 11.3 % (3-12); MONOCYTE COUNT 1.4 K/uL (0-0.8); NEUTROPHIL (%) 77.5 % (45-76); NEUTROPHIL COUNT 9.6 K/uL (1.8-6.4); PLATELET COUNT 213 K/uL (156-360); RBC DIS.WIDTH-CV 17.2 % (11.8-14.6); RBC DIS.WIDTH-SD 59.1 % (39-53); RED BLOOD COUNT 3.28 M/uL (4.00-5.50); WHITE BLOOD COUNT 12.4 K/uL (4.1-10.2)
[2016-11-28 08:15] LABS: INTER. NORMALIZED RATIO 1.6; PROTHROMBIN TIME 18.1 SEC (10.2-12.9)
[2016-11-28 08:26] LABS: ALKALINE PHOSPHATASE 135 IU/L (3-129); ANION GAP 10 MEQ/L (2-14); CHLORIDE 98 MEQ/L (99-109); GFR ESTIMATE (CALCULATED) 7 mL/min/; GLUCOSE 183 mg/dL (70-99); POTASSIUM 4.6 MEQ/L (3.7-5.4); SAMPLE HEMOLYSIS CHECK 0; SAMPLE ICTERIC CHECK 0; SAMPLE LIPEMIA CHECK 0; SODIUM 137 MEQ/L (136-147); TOTAL BILIRUBIN 0.9 MG/DL (0.0-1.0); UREA NITROGEN (BUN) 62 mg/dL (9-23)
[2016-11-28 13:22] LABS: POINT-OF-CARE METER ID UU13113725
[2016-11-28 16:17] VITALS: BP 81/47
[2016-11-28 20:20] VITALS: BP 91/54
[2016-11-28 21:23] LABS: POINT-OF-CARE METER ID UU13113725
[2016-11-28 23:45] VITALS: BP 90/59
[2016-11-29 04:10] VITALS: BP 93/51
[2016-11-29 07:30] VITALS: BP 99/53
[2016-11-29] MEDS ORDERED: CONSTULOSE10 GM/15 M PO (07:39)
[2016-11-29 11:27] LABS: POINT-OF-CARE METER ID UU13113725
== END 2016-11-29 14:00 | disposition home health service (06) | DRG 441 ==
LOC: EME 11:59 → 5EAST 16:05 → EDOF 16:05 → ENRESERV 16:06 → 5EAST 17:27 → ENPENDDIS 11-28 → 5EAST 11-29 14:00
PROVIDERS: Emergency Medicine; Internal Medicine Nephrology; Nurse Practitioner Adult Health; Pediatrics; Physician Assistant; Specialist
PROC: 5A09357 Assistance with Respiratory Ventilation, Less than 24 Consecutive Hours, Continuous Positive Airway Pressure (ICD-10-PCS; principal; 2016-11-21)
PROC: 5A1D60Z (ICD-10-PCS; 2016-11-22)
DX: K72.90 Hepatic failure, unspecified without coma (principal); N18.6 End stage renal disease; L89.623 Pressure ulcer of left heel, stage 3; I13.2 Hypertensive heart and chronic kidney disease with heart failure and with stage 5 chronic kidney disease, or end stage renal disease; J98.11 Atelectasis; C92.10 Chronic myeloid leukemia, BCR/ABL-positive, not having achieved remission; I42.9 Cardiomyopathy, unspecified; I50.9 Heart failure, unspecified; J44.9 Chronic obstructive pulmonary disease, unspecified; G47.33 Obstructive sleep apnea (adult) (pediatric); I27.2 Other secondary pulmonary hypertension; D63.1 Anemia in chronic kidney disease; E11.22 Type 2 diabetes mellitus with diabetic chronic kidney disease; E66.9 Obesity, unspecified; E78.5 Hyperlipidemia, unspecified; M10.9 Gout, unspecified; Z99.2 Dependence on renal dialysis; M19.90 Unspecified osteoarthritis, unspecified site; N28.1 Cyst of kidney, acquired; T45.515A Adverse effect of anticoagulants, initial encounter; R19.5 Other fecal abnormalities; K21.9 Gastro-esophageal reflux disease without esophagitis; I71.4 Abdominal aortic aneurysm, without rupture; I48.2 Chronic atrial fibrillation; I73.9 Peripheral vascular disease, unspecified; K74.60 Unspecified cirrhosis of liver; K76.0 Fatty (change of) liver, not elsewhere classified; T81.89XA Other complications of procedures, not elsewhere classified, initial encounter; L98.8 Other specified disorders of the skin and subcutaneous tissue; N28.89 Other specified disorders of kidney and ureter; E89.0 Postprocedural hypothyroidism; Z79.4 Long term (current) use of insulin; Z87.891 Personal history of nicotine dependence; Z68.31 Body mass index [BMI] 31.0-31.9, adult; Z85.850 Personal history of malignant neoplasm of thyroid; Z95.810 Presence of automatic (implantable) cardiac defibrillator; Z89.412 Acquired absence of left great toe
CPT/HCPCS: 70450; 71010; 71020; 76705; 80048; 80053; 80069; 81003; 82140; 82150; 82390; 82728; 82948; 83540; 83735; 84075 90; 84080 90; 84100; 84165; 84466; 84484; 85025; 85025 91; 85027; 85610; 86256 90; 86709; 87522 90; 93005; 94760; 94799; 97530 GO; 99202; 99281; 99285; G0480; J0456; J0881; J1815; P9047

== ENCOUNTER 2016-12-10 12:48 | Inpatient (IN) | payer OTHER ==
[~2016-12-10] VITALS: Ht 188 cm; Wt 104.1 kg
[~2016-12-10 12:48] MED LIST changes: +LACTULOSE10 GM/151 PO; +WARFARIN SODIUM2 MG PO
[2016-12-10 13:33] LABS: HEMATOCRIT 32.1 % (38.0-50.0); MCH 28.4 PG (29.0-34.0); MCHC 30.5 G/DL (30.0-36.0); MEAN PLAT.VOLUME 9.7 uM^3 (9.0-12.4); PLATELET COUNT 199 K/uL (156-360); RBC DIS.WIDTH-CV 16.7 % (11.8-14.6); RED BLOOD COUNT 3.45 M/uL (4.00-5.50); WHITE BLOOD COUNT 9.9 K/uL (4.1-10.2)
[2016-12-10 13:42] LABS: CHLORIDE 99 mEq/L (99-109); POTASSIUM 3.5 mEq/L (3.7-5.4); SODIUM 140 mEq/L (136-147)
[2016-12-10 13:44] LABS: GLUCOSE 250 mg/dL (70-99)
[2016-12-10 13:46] LABS: ANION GAP 14 MEQ/L (2-14)
[2016-12-10 13:47] LABS: TOTAL BILIRUBIN 0.8 mg/dL (0.0-1.0)
[2016-12-10 13:48] LABS: ALKALINE PHOSPHATASE 155 IU/L (3-129); GFR ESTIMATE (CALCULATED) 11 mL/min/
[2016-12-10 13:49] LABS: UREA NITROGEN (BUN) 34 mg/dL (9-23)
[2016-12-10 14:34] LABS: LIPASE 25 U/L (1.0-51.0)
[2016-12-10] MEDS ORDERED: DAILY VITE1 EAC1 PO (17:36)
[2016-12-10 23:02] LABS: POINT-OF-CARE METER ID UU14162508
[2016-12-10 23:44] LABS: INTER. NORMALIZED RATIO 2.2; PROTHROMBIN TIME 25.2 SEC (10.2-12.9)
[2016-12-11] VITALS (8 sets, daily range): BP systolic 84–135; BP diastolic 52–59
[2016-12-11 05:35] LABS: HEMATOCRIT 30.8 % (38.0-50.0); MCH 28.7 PG (29.0-34.0); MCHC 31.2 G/DL (30.0-36.0); MCV 92.2 FL (86-99); MEAN PLAT.VOLUME 9.6 uM^3 (9.0-12.4); PLATELET COUNT 209 K/uL (156-360); RBC DIS.WIDTH-SD 57.2 % (39-53); RED BLOOD COUNT 3.34 M/uL (4.00-5.50); WHITE BLOOD COUNT 8.3 K/uL (4.1-10.2)
[2016-12-11 06:22] LABS: POINT-OF-CARE METER ID UU14162508
[2016-12-11 07:17] LABS: ALKALINE PHOSPHATASE 111 IU/L (3-129); ANION GAP 11 MEQ/L (2-14); CHLORIDE 101 MEQ/L (99-109); GFR ESTIMATE (CALCULATED) 10 mL/min/; GLUCOSE 126 mg/dL (70-99); POTASSIUM 3.5 MEQ/L (3.7-5.4); SAMPLE HEMOLYSIS CHECK 0; SAMPLE ICTERIC CHECK 0; SAMPLE LIPEMIA CHECK 0; SODIUM 140 MEQ/L (136-147); TOTAL BILIRUBIN 0.8 MG/DL (0.0-1.0); UREA NITROGEN (BUN) 41 mg/dL (9-23)
[2016-12-11 09:38] LABS: INTER. NORMALIZED RATIO 2.2; PROTHROMBIN TIME 25.5 SEC (10.2-12.9)
[2016-12-11 11:46] LABS: POINT-OF-CARE METER ID UU14162508
[2016-12-11 17:43] LABS: POINT-OF-CARE METER ID UU14208750
[2016-12-11 21:20] LABS: POINT-OF-CARE METER ID UU14162508
[2016-12-11 21:21] LABS: ADD MIUA? YES; BILIRUBIN NEGATIVE; BLOOD LARGE; COLOR AMBER ((YELLOW)); GLUCOSE (STRIP) NEGATIVE; KETONES NEGATIVE; LEUKOCYTES MODERATE; NITRITE NEGATIVE; PROTEIN (STRIP) 100; SPECIFIC GRAVITY 1.018 (1.000-1.030); UROBILINOGEN 0.2 MG/DL (0.2-1.0)
[2016-12-11 22:10] LABS: CASTS NONE SEEN /LPF; EPITHELIAL CELLS RARE /HPF; MUCUS NONE SEEN /LPF; RED BLOOD CELLS 15-20 /HPF (0-5)
[2016-12-11 22:11] LABS: BACTERIA 4+ /HPF; UCUL ADDED? YES; WHITE BLOOD CELLS 0-5 /HPF (0-5)
[2016-12-12 03:28] VITALS: BP 96/62
[2016-12-12 05:30] LABS: POINT-OF-CARE METER ID UU14208750; POINT-OF-CARE USER ID STWHLR41
[2016-12-12 08:55] LABS: EOSINOPHIL (%) 2.3 % (0-5); EOSINOPHIL COUNT 0.3 K/uL (0-0.3); IMMATURE GRANULOCYTE (%) 0.4 % (0.0-0.7); IMMATURE GRANULOCYTE COUNT 0.1 K/uL; LYMPHOCYTE COUNT 0.8 K/uL (1.0-2.8); MCHC 31.5 G/DL (30.0-36.0); MCV 91.9 FL (86-99); MEAN PLAT.VOLUME 9.7 uM^3 (9.0-12.4); MONOCYTE (%) 10.9 % (3-12); MONOCYTE COUNT 1.2 K/uL (0-0.8); RBC DIS.WIDTH-CV 16.9 % (11.8-14.6); RBC DIS.WIDTH-SD 57.1 % (39-53); RED BLOOD COUNT 3.59 M/uL (4.00-5.50); WHITE BLOOD COUNT 11.4 K/uL (4.1-10.2)
[2016-12-12 09:00] LABS: INTER. NORMALIZED RATIO 2.9; PROTHROMBIN TIME 33.8 SEC (10.2-12.9)
[2016-12-12 09:01] LABS: PLATELET COUNT 281 K/uL (156-360)
[2016-12-12 09:31] LABS: ANION GAP 14 MEQ/L (2-14); CHLORIDE 99 MEQ/L (99-109); GLUCOSE 137 mg/dL (70-99); POTASSIUM 4.1 MEQ/L (3.7-5.4); SAMPLE HEMOLYSIS CHECK 0; SAMPLE ICTERIC CHECK 0; SAMPLE LIPEMIA CHECK 0; SODIUM 138 MEQ/L (136-147); UREA NITROGEN (BUN) 59 mg/dL (9-23)
[2016-12-12 09:33] LABS: GFR ESTIMATE (CALCULATED) 7 mL/min/
[2016-12-12 13:48] VITALS: BP 108/58
[2016-12-12 15:35] VITALS: BP 118/60
[2016-12-12 16:50] LABS: POINT-OF-CARE METER ID UU14208750
[2016-12-12 20:29] VITALS: BP 103/58
[2016-12-12 21:47] VITALS: BP 86/58
[2016-12-12 22:29] LABS: POINT-OF-CARE METER ID UU13113781
[2016-12-13 00:31] VITALS: BP 88/49
[2016-12-13 04:52] LABS: EOSINOPHIL (%) 1.6 % (0-5); EOSINOPHIL COUNT 0.2 K/uL (0-0.3); HEMATOCRIT 34.1 % (38.0-50.0); IMMATURE GRANULOCYTE (%) 0.4 % (0.0-0.7); INSTRUMENT ABS NEUTROPHIL CT 8.9 K/uL; LYMPHOCYTE COUNT 0.9 K/uL (1.0-2.8); MCH 27.7 PG (29.0-34.0); MCHC 30.5 G/DL (30.0-36.0); MCV 90.9 FL (86-99); MEAN PLAT.VOLUME 9.4 uM^3 (9.0-12.4); MONOCYTE (%) 11.6 % (3-12); MONOCYTE COUNT 1.3 K/uL (0-0.8); NEUTROPHIL (%) 78.1 % (45-76); NEUTROPHIL COUNT 8.9 K/uL (1.8-6.4); PLATELET COUNT 284 K/uL (156-360); RBC DIS.WIDTH-SD 56.5 % (39-53); RED BLOOD COUNT 3.75 M/uL (4.00-5.50); WHITE BLOOD COUNT 11.4 K/uL (4.1-10.2)
[2016-12-13 05:05] LABS: INTER. NORMALIZED RATIO 3.4; PROTHROMBIN TIME 38.9 SEC (10.2-12.9)
[2016-12-13 05:17] LABS: ANION GAP 14 MEQ/L (2-14); CHLORIDE 98 MEQ/L (99-109); SAMPLE HEMOLYSIS CHECK 0; SAMPLE ICTERIC CHECK 0; SAMPLE LIPEMIA CHECK 0; SODIUM 137 MEQ/L (136-147); UREA NITROGEN (BUN) 36 mg/dL (9-23)
[2016-12-13 05:19] LABS: GFR ESTIMATE (CALCULATED) 11 mL/min/; GLUCOSE 48 mg/dL (70-99); VANCOMYCIN, TROUGH 11.8 MCG/ML (10-20)
[2016-12-13 05:26] VITALS: BP 83/57
[2016-12-13 07:08] VITALS: BP 84/51
[2016-12-13 07:58] LABS: POINT-OF-CARE METER ID UU13113698
[2016-12-13] MEDS ORDERED: OXYCODONE HCL5 MG PO (09:10)
[2016-12-13] MEDS ORDERED: VANCOMYCIN HCL1 GM IV (09:10)
[2016-12-13] MEDS ORDERED: TOBRAMYCIN IV (09:10)
[2016-12-13 11:49] VITALS: BP 94/53
[2016-12-13 12:07] LABS: POINT-OF-CARE METER ID UU13113698
[2016-12-13 15:14] VITALS: BP 84/50
[2016-12-13 16:36] LABS: POINT-OF-CARE METER ID UU13113698
== END 2016-12-13 18:35 | disposition home health service (06) | DRG 871 ==
LOC: EME 12:48 → 2EAST 20:18 → EDOF 20:18 → ENRESERV 20:23 → 2EAST 22:20 → ENRESERV 12-12 20:14 → 4EAST 12-12 20:45 → CANRESERV 12-12 20:49 → ENRESERV 12-12 20:49 → 2EAST 12-12 20:51 → ENRESERV 12-12 20:51 → 4EAST 12-12 21:16 → ENPENDDIS 12-13 → 4EAST 12-13 18:35
PROVIDERS: Emergency Medicine; Internal Medicine; Internal Medicine Nephrology; Pediatrics; Physician Assistant
DX: A40.9 Streptococcal sepsis, unspecified (principal); J96.01 Acute respiratory failure with hypoxia; G93.41 Metabolic encephalopathy; N17.9 Acute kidney failure, unspecified; I13.2 Hypertensive heart and chronic kidney disease with heart failure and with stage 5 chronic kidney disease, or end stage renal disease; J18.9 Pneumonia, unspecified organism; C92.10 Chronic myeloid leukemia, BCR/ABL-positive, not having achieved remission; F05 Delirium due to known physiological condition; N18.6 End stage renal disease; E11.628 Type 2 diabetes mellitus with other skin complications; L03.116 Cellulitis of left lower limb; E11.22 Type 2 diabetes mellitus with diabetic chronic kidney disease; I50.22 Chronic systolic (congestive) heart failure; D64.9 Anemia, unspecified; E03.9 Hypothyroidism, unspecified; E11.65 Type 2 diabetes mellitus with hyperglycemia; E78.5 Hyperlipidemia, unspecified; K21.9 Gastro-esophageal reflux disease without esophagitis; E83.51 Hypocalcemia; E86.0 Dehydration; E87.1 Hypo-osmolality and hyponatremia; E87.5 Hyperkalemia; G47.33 Obstructive sleep apnea (adult) (pediatric); I27.2 Other secondary pulmonary hypertension; I42.9 Cardiomyopathy, unspecified; I48.91 Unspecified atrial fibrillation; J44.0 Chronic obstructive pulmonary disease with (acute) lower respiratory infection; J44.1 Chronic obstructive pulmonary disease with (acute) exacerbation; K59.00 Constipation, unspecified; K72.90 Hepatic failure, unspecified without coma; K74.60 Unspecified cirrhosis of liver; L03.114 Cellulitis of left upper limb; N39.0 Urinary tract infection, site not specified; Q61.3 Polycystic kidney, unspecified; T45.515A Adverse effect of anticoagulants, initial encounter; Y71.2 Prosthetic and other implants, materials and accessory cardiovascular devices associated with adverse incidents; T82.510A Breakdown (mechanical) of surgically created arteriovenous fistula, initial encounter; Z79.4 Long term (current) use of insulin; Z99.2 Dependence on renal dialysis; Z85.850 Personal history of malignant neoplasm of thyroid; Z87.891 Personal history of nicotine dependence; Z88.9 Allergy status to unspecified drugs, medicaments and biological substances; Z95.810 Presence of automatic (implantable) cardiac defibrillator; I95.9 Hypotension, unspecified; R19.7 Diarrhea, unspecified; R26.2 Difficulty in walking, not elsewhere classified; R31.9 Hematuria, unspecified; Z89.412 Acquired absence of left great toe; Z89.422 Acquired absence of other left toe(s); E11.621 Type 2 diabetes mellitus with foot ulcer; L97.529 Non-pressure chronic ulcer of other part of left foot with unspecified severity
CPT/HCPCS: 71010; 71020; 73630; 80053; 80069; 80202; 81003; 82140; 82948; 83605; 83690; 85025; 85027; 85610; 87077; 87086; 87186; 94660; 94799; 99202; 99281; 99285; J1815; J3260; J3370; J7050

== ENCOUNTER 2017-02-12 11:10 | Emergency (ER) | payer OTHER ==
[~2017-02-12] VITALS: Ht 188 cm; Wt 109.1 kg
[~2017-02-12 11:10] MED LIST changes: +DAILY VITE1 EAC1 PO; +OXYCODONE HCL5 MG PO; +TOBRAMYCIN IV; +VANCOMYCIN HCL1 GM IV
[2017-02-12 11:49] LABS: HEMATOCRIT 35.6 % (38.0-50.0); MCH 26.8 PG (29.0-34.0); MCHC 29.8 G/DL (30.0-36.0); MCV 89.9 FL (86-99); MEAN PLAT.VOLUME 9.7 uM^3 (9.0-12.4); PLATELET COUNT 223 K/uL (156-360); RBC DIS.WIDTH-CV 20.2 % (11.8-14.6); RBC DIS.WIDTH-SD 66.9 % (39-53); RED BLOOD COUNT 3.96 M/uL (4.00-5.50); WHITE BLOOD COUNT 9.3 K/uL (4.1-10.2)
[2017-02-12 11:59] LABS: CHLORIDE 97 mEq/L (99-109); POTASSIUM 3.5 mEq/L (3.7-5.4); SODIUM 139 mEq/L (136-147)
[2017-02-12 12:00] LABS: GLUCOSE 209 mg/dL (70-99)
[2017-02-12 12:02] LABS: ANION GAP 15 MEQ/L (2-14)
[2017-02-12 12:04] LABS: GFR ESTIMATE (CALCULATED) 10 mL/min/
[2017-02-12 12:05] LABS: UREA NITROGEN (BUN) 50 mg/dL (9-23)
[2017-02-12 15:16] LABS: TOTAL BILIRUBIN 0.9 mg/dL (0.0-1.0)
[2017-02-12 15:17] LABS: ALKALINE PHOSPHATASE 171 IU/L (3-129)
[2017-02-12 15:19] LABS: DIRECT BILIRUBIN 0.7 mg/dL (0.0-0.3)
[2017-02-12 15:22] LABS: EOSINOPHIL (%) 9.8 % (0-5); EOSINOPHIL COUNT 0.9 K/uL (0-0.3); IMMATURE GRANULOCYTE (%) 0.3 % (0.0-0.7); INSTRUMENT ABS NEUTROPHIL CT 6.6 K/uL; LYMPHOCYTE COUNT 0.9 K/uL (1.0-2.8); MONOCYTE (%) 9.7 % (3-12); MONOCYTE COUNT 0.9 K/uL (0-0.8); NEUTROPHIL (%) 70.5 % (45-76); NEUTROPHIL COUNT 6.6 K/uL (1.8-6.4)
[2017-02-12 15:42] LABS: PROTHROMBIN TIME 17.2 SEC (10.2-12.9)
[2017-02-12 15:45] LABS: INTER. NORMALIZED RATIO 1.5
[2017-02-12] MEDS ORDERED: FEOSOL325 MG PO (17:08)
[2017-02-12] MEDS ORDERED: LIPITOR10 MG PO (17:09)
[2017-02-12] MEDS ORDERED: OCEAN NASAL 0.645 ML BOTH NARES (17:12)
[2017-02-12] MEDS ORDERED: GOLD BOND MED56.6 GM TP (17:12)
[2017-02-12] MEDS ORDERED: BENADRYL ITCH28.3 GM TP (17:13)
[2017-02-12] MEDS ORDERED: ATARAX,VISTARIL25 MG PO (17:49)
[2017-02-12] MEDS ORDERED: PERMETHRIN60 GM TP (17:49)
[2017-02-12 18:18] VITALS: BP 94/64
== END 2017-02-12 18:19 | disposition home or self-care (01) ==
LOC: EME 11:10
PROVIDERS: Emergency Medicine; Nurse Practitioner Family
DX: R21 Rash and other nonspecific skin eruption (principal); I13.2 Hypertensive heart and chronic kidney disease with heart failure and with stage 5 chronic kidney disease, or end stage renal disease; E11.22 Type 2 diabetes mellitus with diabetic chronic kidney disease; N18.6 End stage renal disease; I50.9 Heart failure, unspecified; Z99.2 Dependence on renal dialysis; I87.8 Other specified disorders of veins; C91.10 Chronic lymphocytic leukemia of B-cell type not having achieved remission; I48.91 Unspecified atrial fibrillation; E78.5 Hyperlipidemia, unspecified; J44.9 Chronic obstructive pulmonary disease, unspecified; K21.9 Gastro-esophageal reflux disease without esophagitis; G47.30 Sleep apnea, unspecified; Z99.81 Dependence on supplemental oxygen; Z85.850 Personal history of malignant neoplasm of thyroid; E89.0 Postprocedural hypothyroidism; Z79.01 Long term (current) use of anticoagulants; Z79.4 Long term (current) use of insulin; Z87.891 Personal history of nicotine dependence
CPT/HCPCS: 71020; 80048; 80076; 82140; 85025; 85027; 85610; 93005; 99281; 99284; J7512

== ENCOUNTER 2017-02-17 11:51 | Emergency (ER) | payer OTHER ==
[~2017-02-17] VITALS: Ht 188 cm; Wt 109.0 kg
[~2017-02-17 11:51] MED LIST changes: +ATARAX,VISTARIL25 MG PO; +BENADRYL ITCH28.3 GM TP; +GOLD BOND MED56.6 GM TP; +LIPITOR10 MG PO; +OCEAN NASAL 0.645 ML BOTH NARES; +PERMETHRIN60 GM TP
[2017-02-17 12:44] LABS: EOSINOPHIL (%) 7.9 % (0-5); EOSINOPHIL COUNT 0.7 K/uL (0-0.3); HEMATOCRIT 36.4 % (38.0-50.0); IMMATURE GRANULOCYTE (%) 0.4 % (0.0-0.7); INSTRUMENT ABS NEUTROPHIL CT 6.7 K/uL; LYMPHOCYTE COUNT 0.8 K/uL (1.0-2.8); MCH 26.7 PG (29.0-34.0); MCHC 29.9 G/DL (30.0-36.0); MCV 89.2 FL (86-99); MEAN PLAT.VOLUME 9.6 uM^3 (9.0-12.4); MONOCYTE (%) 7.8 % (3-12); MONOCYTE COUNT 0.7 K/uL (0-0.8); NEUTROPHIL (%) 74.3 % (45-76); NEUTROPHIL COUNT 6.7 K/uL (1.8-6.4); PLATELET COUNT 234 K/uL (156-360); RBC DIS.WIDTH-SD 65.4 % (39-53); RED BLOOD COUNT 4.08 M/uL (4.00-5.50); WHITE BLOOD COUNT 9.1 K/uL (4.1-10.2)
[2017-02-17 12:51] LABS: INTER. NORMALIZED RATIO 1.8
[2017-02-17 12:54] LABS: PTT 34.8 SEC (25-37)
[2017-02-17 12:56] LABS: CHLORIDE 99 mEq/L (99-109); POTASSIUM 3.7 mEq/L (3.7-5.4); SODIUM 141 mEq/L (136-147)
[2017-02-17 12:59] LABS: GLUCOSE 248 mg/dL (70-99)
[2017-02-17 13:00] LABS: ANION GAP 14 MEQ/L (2-14)
[2017-02-17 13:01] LABS: TOTAL BILIRUBIN 0.9 mg/dL (0.0-1.0)
[2017-02-17 13:02] LABS: ALKALINE PHOSPHATASE 169 IU/L (3-129)
[2017-02-17 13:03] LABS: GFR ESTIMATE (CALCULATED) 8 mL/min/
[2017-02-17 13:04] LABS: DIRECT BILIRUBIN 0.7 mg/dL (0.0-0.3); TROP-I INTERPRETATION INDETERMINATE; TROPONIN-I 0.34 ng/mL (0.0-0.30); UREA NITROGEN (BUN) 55 mg/dL (9-23)
[2017-02-17 13:06] LABS: LIPASE 20 U/L (1.0-51.0)
[2017-02-17 16:41] LABS: TROP-I INTERPRETATION INDETERMINATE; TROPONIN-I 0.32 ng/mL (0.0-0.30)
[2017-02-17 17:25] VITALS: BP 95/56
== END 2017-02-17 17:35 | disposition home or self-care (01) ==
LOC: EME 11:51
PROVIDERS: Emergency Medicine
DX: S00.83XA Contusion of other part of head, initial encounter (principal); M25.521 Pain in right elbow; W18.30XA Fall on same level, unspecified, initial encounter; Y92.008 Other place in unspecified non-institutional (private) residence as the place of occurrence of the external cause; Z79.01 Long term (current) use of anticoagulants; I13.2 Hypertensive heart and chronic kidney disease with heart failure and with stage 5 chronic kidney disease, or end stage renal disease; N18.6 End stage renal disease; E11.22 Type 2 diabetes mellitus with diabetic chronic kidney disease; I50.9 Heart failure, unspecified; Z99.2 Dependence on renal dialysis; Z79.4 Long term (current) use of insulin; I48.91 Unspecified atrial fibrillation; J44.9 Chronic obstructive pulmonary disease, unspecified; E78.5 Hyperlipidemia, unspecified; K21.9 Gastro-esophageal reflux disease without esophagitis; Z85.6 Personal history of leukemia; Z85.850 Personal history of malignant neoplasm of thyroid; Z87.891 Personal history of nicotine dependence; Z88.8 Allergy status to other drugs, medicaments and biological substances
CPT/HCPCS: 70450; 73080; 80048; 80076; 82140; 83690; 83880; 84484; 85025; 85610; 85730; 99281; 99285; J2270

== ENCOUNTER 2017-04-27 05:16 | Inpatient (IN) | payer OTHER ==
[~2017-04-27] VITALS: Ht 175.3 cm; Wt 113.1 kg
[~2017-04-27 05:16] MED LIST changes: -LIPITOR10 MG PO
[2017-04-27 05:49] LABS: HEMATOCRIT 29.5 % (38.0-50.0); HEMOGLOBIN 9.1 G/DL (12.5-16.6); MCH 26.9 PG (29.0-34.0); MCHC 30.8 G/DL (30.0-36.0); MCV 87.3 FL (86-99); PLATELET COUNT 287 K/uL (156-360); RBC DIS.WIDTH-CV 19.6 % (11.8-14.6); RBC DIS.WIDTH-SD 62.1 % (39-53); RED BLOOD COUNT 3.38 M/uL (4.00-5.50); WHITE BLOOD COUNT 11.7 K/uL (4.1-10.2)
[2017-04-27 05:55] LABS: INTER. NORMALIZED RATIO 2.1
[2017-04-27 05:58] LABS: PTT 33.6 SEC (25-37)
[2017-04-27 06:00] LABS: ALBUMIN 3.1 g/dL (3.2-4.8); CHLORIDE 93 mEq/L (99-109); POTASSIUM 3.4 mEq/L (3.7-5.4); SODIUM 139 mEq/L (136-147)
[2017-04-27 06:02] LABS: GLUCOSE 131 mg/dL (70-99)
[2017-04-27 06:03] LABS: TOTAL PROTEIN 6.9 g/dL (6.4-8.3)
[2017-04-27 06:04] LABS: TOTAL BILIRUBIN 0.9 mg/dL (0.0-1.0)
[2017-04-27 06:06] LABS: ALKALINE PHOSPHATASE 188 IU/L (3-129); CREATININE 4.5 mg/dL (0.6-1.3); GFR ESTIMATE (CALCULATED) 14 mL/min/ (58.99-99999)
[2017-04-27 06:07] LABS: UREA NITROGEN (BUN) 31 mg/dL (9-23)
[2017-04-27 06:08] LABS: AST (GOT) 23 IU/L (2-34)
[2017-04-27 06:09] LABS: ALT (GPT) 16 IU/L (3-49); LIPASE 22 U/L (1.0-51.0)
[2017-04-27] MEDS ORDERED: JANTOVEN5 MG PO (08:34)
[2017-04-27] MEDS ORDERED: CONSTULOSE10 GM/15 M PO (08:36)
[2017-04-27] MEDS ORDERED: FOSRENOL750 MG PO ×2 (08:39)
[2017-04-27 10:08] LABS: BASE EXCESS 4.7 mEq/L (-3 to +3); BICARBONATE 29.2 mEq/L (22-26); CARBOXY HGB 1.8 % (0-5); METHEMOGLOBIN 0.9 % (0-1.5); PCO2 42 mm Hg (35-45); pH 7.45 (7.35-7.45)
[2017-04-27 10:09] LABS: COMMENTS - BLOOD GASES A+C+; DEVICE NC; PO2 < 28 mm Hg (80-100); SITE RR
[2017-04-27 18:30] VITALS: BP 84/54
[2017-04-27 19:00] VITALS: BP 83/49
[2017-04-27 20:00] VITALS: BP 80/49
[2017-04-27 21:00] VITALS: BP 82/48
[2017-04-27 22:00] VITALS: BP 82/51
[2017-04-27 23:00] VITALS: BP 69/45
[2017-04-28] VITALS (19 sets, daily range): BP systolic 66–100; BP diastolic 36–68
[2017-04-28 05:52] LABS: BASOPHIL (%) 0.1 % (0-1); EOSINOPHIL (%) 0 % (0-5); HEMATOCRIT 25.9 % (38.0-50.0); HEMOGLOBIN 7.8 G/DL (12.5-16.6); IMMATURE GRANULOCYTE (%) 0.9 % (0.0-0.7); LYMPHOCYTE (%) 4.3 % (15-42); LYMPHOCYTE COUNT 0.9 K/uL (1.0-2.8); MCH 26.7 PG (29.0-34.0); MCHC 30.1 G/DL (30.0-36.0); MCV 88.7 FL (86-99); MONOCYTE (%) 8.7 % (3-12); MONOCYTE COUNT 1.8 K/uL (0-0.8); NEUTROPHIL COUNT 17.5 K/uL (1.8-6.4); NRBC (%) 0.1 /100 WBC (0-0); PLATELET COUNT 244 K/uL (156-360); RBC DIS.WIDTH-CV 19.7 % (11.8-14.6); RBC DIS.WIDTH-SD 62.8 % (39-53); RED BLOOD COUNT 2.92 M/uL (4.00-5.50); WHITE BLOOD COUNT 20.4 K/uL (4.1-10.2)
[2017-04-28 06:07] LABS: INTER. NORMALIZED RATIO 2.9
[2017-04-28 06:19] LABS: ALBUMIN 2.7 G/DL (3.2-4.8); ALKALINE PHOSPHATASE 127 IU/L (3-129); ALT (GPT) 12 IU/L (3-49); AST (GOT) 21 IU/L (2-34); CHLORIDE 94 MEQ/L (99-109); GLUCOSE 139 mg/dL (70-99); SODIUM 136 MEQ/L (136-147); TOTAL PROTEIN 5.6 G/DL (6.4-8.3); VANCOMYCIN, TROUGH 19.7 MCG/ML (10-20)
[2017-04-28 06:22] LABS: CREATININE 5.4 MG/DL (0.6-1.3); GFR ESTIMATE (CALCULATED) 11 mL/min/ (58.99-99999); POTASSIUM 4.2 MEQ/L (3.7-5.4); UREA NITROGEN (BUN) 50 mg/dL (9-23)
[2017-04-29 00:23] VITALS: BP 82/52
[2017-04-29 06:19] LABS: BASOPHIL (%) 0.1 % (0-1); EOSINOPHIL (%) 0.2 % (0-5); HEMATOCRIT 27.6 % (38.0-50.0); HEMOGLOBIN 8.4 G/DL (12.5-16.6); IMMATURE GRANULOCYTE (%) 0.6 % (0.0-0.7); LYMPHOCYTE (%) 5.5 % (15-42); LYMPHOCYTE COUNT 1.1 K/uL (1.0-2.8); MCH 26.7 PG (29.0-34.0); MCHC 30.4 G/DL (30.0-36.0); MCV 87.6 FL (86-99); MONOCYTE (%) 9.8 % (3-12); MONOCYTE COUNT 1.9 K/uL (0-0.8); NEUTROPHIL (%) 83.8 % (45-76); NEUTROPHIL COUNT 16.3 K/uL (1.8-6.4); NRBC (%) 0.2 /100 WBC (0-0); PLATELET COUNT 296 K/uL (156-360); RBC DIS.WIDTH-CV 19.5 % (11.8-14.6); RBC DIS.WIDTH-SD 60.8 % (39-53); RED BLOOD COUNT 3.15 M/uL (4.00-5.50); WHITE BLOOD COUNT 19.5 K/uL (4.1-10.2)
[2017-04-29 06:50] VITALS: BP 85/52
[2017-04-29 06:57] LABS: ALBUMIN 2.9 G/DL (3.2-4.8); ALKALINE PHOSPHATASE 141 IU/L (3-129); ALT (GPT) 13 IU/L (3-49); AST (GOT) 28 IU/L (2-34); CHLORIDE 97 MEQ/L (99-109); CREATININE 4.7 MG/DL (0.6-1.3); GFR ESTIMATE (CALCULATED) 13 mL/min/ (58.99-99999); POTASSIUM 4.2 MEQ/L (3.7-5.4); SODIUM 139 MEQ/L (136-147); TOTAL BILIRUBIN 1.1 MG/DL (0.0-1.0); TOTAL PROTEIN 5.6 G/DL (6.4-8.3); UREA NITROGEN (BUN) 48 mg/dL (9-23)
[2017-04-29 06:59] LABS: GLUCOSE 72 mg/dL (70-99)
[2017-04-30 18:19] VITALS: BP 92/51
[2017-05-01 00:52] VITALS: BP 83/50
[2017-05-01 06:17] LABS: HEMOGLOBIN 8.7 G/DL (12.5-16.6); MCV 86.6 FL (86-99); NRBC (%) 0.6 /100 WBC (0-0); PLATELET COUNT 333 K/uL (156-360); RBC DIS.WIDTH-CV 18.9 % (11.8-14.6); RBC DIS.WIDTH-SD 59.1 % (39-53); RED BLOOD COUNT 3.35 M/uL (4.00-5.50); WHITE BLOOD COUNT 13.5 K/uL (4.1-10.2)
[2017-05-01 06:47] LABS: CHLORIDE 93 MEQ/L (99-109); GFR ESTIMATE (CALCULATED) 8 mL/min/ (58.99-99999); POTASSIUM 4.5 MEQ/L (3.7-5.4); SODIUM 138 MEQ/L (136-147)
[2017-05-01 06:51] LABS: CREATININE 7.6 MG/DL (0.6-1.3); GLUCOSE 147 mg/dL (70-99); UREA NITROGEN (BUN) 83 mg/dL (9-23)
[2017-05-01 08:15] VITALS: BP 87/56
[2017-05-01 13:27] LABS: HEPATITIS B SURFACE ANTIGEN Nonreactive
[2017-05-01 13:28] LABS: HEPATITIS B SURFACE ANTIBODY Nonreactive
[2017-05-01 15:00] VITALS: BP 85/52
[2017-05-01 17:03] LABS: INTER. NORMALIZED RATIO 3.4
[2017-05-02 00:09] VITALS: BP 89/54
[2017-05-02 07:32] LABS: INTER. NORMALIZED RATIO 2.3
[2017-05-02 07:51] VITALS: BP 71/47
[2017-05-02 16:28] VITALS: BP 90/53
[2017-05-02 23:48] VITALS: BP 89/51
[2017-05-03 08:36] VITALS: BP 92/56
[2017-05-03 10:51] LABS: BASOPHIL (%) 0.3 % (0-1); EOSINOPHIL (%) 3.5 % (0-5); EOSINOPHIL COUNT 0.4 K/uL (0-0.3); HEMATOCRIT 27.8 % (38.0-50.0); HEMOGLOBIN 8.5 G/DL (12.5-16.6); IMMATURE GRANULOCYTE (%) 0.9 % (0.0-0.7); LYMPHOCYTE (%) 8.2 % (15-42); MCH 26.6 PG (29.0-34.0); MCHC 30.6 G/DL (30.0-36.0); MCV 87.1 FL (86-99); MONOCYTE (%) 13.5 % (3-12); MONOCYTE COUNT 1.6 K/uL (0-0.8); NEUTROPHIL (%) 73.6 % (45-76); NEUTROPHIL COUNT 8.8 K/uL (1.8-6.4); NRBC (%) 0.3 /100 WBC (0-0); PLATELET COUNT 273 K/uL (156-360); RBC DIS.WIDTH-CV 19.5 % (11.8-14.6); RED BLOOD COUNT 3.19 M/uL (4.00-5.50)
[2017-05-03 10:57] LABS: INTER. NORMALIZED RATIO 1.9
[2017-05-03 11:15] LABS: ALBUMIN 2.7 G/DL (3.2-4.8); ALKALINE PHOSPHATASE 135 IU/L (3-129); ALT (GPT) 13 IU/L (3-49); AST (GOT) 22 IU/L (2-34); CHLORIDE 98 MEQ/L (99-109); CREATININE 6.9 MG/DL (0.6-1.3); GFR ESTIMATE (CALCULATED) 8 mL/min/ (58.99-99999); GLUCOSE 116 mg/dL (70-99); POTASSIUM 4.6 MEQ/L (3.7-5.4); SODIUM 138 MEQ/L (136-147); TOTAL PROTEIN 5.1 G/DL (6.4-8.3); UREA NITROGEN (BUN) 65 mg/dL (9-23)
[2017-05-03 16:54] VITALS: BP 163/72
[2017-05-04 00:26] VITALS: BP 77/44
[2017-05-04 07:05] LABS: ALKALINE PHOSPHATASE 145 IU/L (3-129); ALT (GPT) 13 IU/L (3-49); AST (GOT) 23 IU/L (2-34); CHLORIDE 103 MEQ/L (99-109); GFR ESTIMATE (CALCULATED) 13 mL/min/ (58.99-99999); GLUCOSE 101 mg/dL (70-99); POTASSIUM 4.3 MEQ/L (3.7-5.4); SODIUM 144 MEQ/L (136-147); TOTAL BILIRUBIN 1.1 MG/DL (0.0-1.0); TOTAL PROTEIN 5.3 G/DL (6.4-8.3); UREA NITROGEN (BUN) 36 mg/dL (9-23)
[2017-05-04 07:06] LABS: CREATININE 4.7 MG/DL (0.6-1.3)
[2017-05-04 07:38] VITALS: BP 86/51
[2017-05-04] MEDS ORDERED: HYDROXYZINE HCL25 MG PO (15:24)
[2017-05-04 15:37] VITALS: BP 000/00
== END 2017-05-04 17:05 | disposition hospice, home (50) | DRG 871 ==
LOC: EME → EDBD 05:16 → EDOF 08:01 → 4WEST 08:01 → 5EAST 08:01 → CANRESERV 08:07 → ENRESERV 08:07 → EDOF 08:17 → ENRESERV 09:21 → EDOF 12:15 → ENRESERV 13:07 → 5EAST 13:35 → ENRESERV 17:23 → 4WEST 18:31 → ENRESERV 04-28 18:43 → 5EAST 04-28 20:21 → ENRESERV 04-29 11:02 → CANRESERV 04-29 11:02 → 5EAST 05-04 17:05
PROVIDERS: Emergency Medicine; Family Medicine; Internal Medicine; Internal Medicine Critical Care Medicine; Internal Medicine Gastroenterology; Internal Medicine Nephrology; Pediatrics; Physician Assistant
DX: A41.9 Sepsis, unspecified organism (principal); G93.41 Metabolic encephalopathy; J96.91 Respiratory failure, unspecified with hypoxia; C92.10 Chronic myeloid leukemia, BCR/ABL-positive, not having achieved remission; I48.2 Chronic atrial fibrillation; E10.51 Type 1 diabetes mellitus with diabetic peripheral angiopathy without gangrene; E10.22 Type 1 diabetes mellitus with diabetic chronic kidney disease; I12.9 Hypertensive chronic kidney disease with stage 1 through stage 4 chronic kidney disease, or unspecified chronic kidney disease; E10.621 Type 1 diabetes mellitus with foot ulcer; I42.0 Dilated cardiomyopathy; I50.20 Unspecified systolic (congestive) heart failure; Z51.5 Encounter for palliative care; Z66 Do not resuscitate; E87.6 Hypokalemia; I50.82 Biventricular heart failure; K76.1 Chronic passive congestion of liver; G47.33 Obstructive sleep apnea (adult) (pediatric); I27.20 Pulmonary hypertension, unspecified; K72.90 Hepatic failure, unspecified without coma; L89.93 Pressure ulcer of unspecified site, stage 3; I95.89 Other hypotension; L89.629 Pressure ulcer of left heel, unspecified stage; N18.6 End stage renal disease; I35.0 Nonrheumatic aortic (valve) stenosis; I71.2 Thoracic aortic aneurysm, without rupture; D68.9 Coagulation defect, unspecified; D63.1 Anemia in chronic kidney disease; E78.5 Hyperlipidemia, unspecified; J43.9 Emphysema, unspecified; L97.529 Non-pressure chronic ulcer of other part of left foot with unspecified severity; R18.8 Other ascites; Z68.36 Body mass index [BMI] 36.0-36.9, adult; K21.9 Gastro-esophageal reflux disease without esophagitis; Z79.899 Other long term (current) drug therapy; Z95.810 Presence of automatic (implantable) cardiac defibrillator; Z79.4 Long term (current) use of insulin; Z80.6 Family history of leukemia; Z79.01 Long term (current) use of anticoagulants; Z85.850 Personal history of malignant neoplasm of thyroid; Z82.49 Family history of ischemic heart disease and other diseases of the circulatory system; Z99.2 Dependence on renal dialysis; Z83.3 Family history of diabetes mellitus; Z89.429 Acquired absence of other toe(s), unspecified side; Z87.891 Personal history of nicotine dependence; Z80.1 Family history of malignant neoplasm of trachea, bronchus and lung
CPT/HCPCS: 36600; 70450; 71010; 80047; 80048; 80053; 80202; 82140; 82803; 82945; 82948; 83605; 83615 91; 83690; 83986 90; 84157; 84443; 85025; 85027; 85610; 85730; 86706; 87040; 87070; 87205; 87340; 87493; 87641; 89051; 93005; 93306; 94002; 94660; 94799; 97530 GO; 97530 GP; 99202; 99281; 99285; A6021; J0456; J0881; J1630; J1815; J1956; J2060; J2270; J3370; J7030; P9047; Q0177